=== PATIENT | female | born 1965 | race Caucasian/White ===

== ENCOUNTER 2021-04-17 14:44 | Outpatient (CLI) | payer OTHER, MEDICAID, SELFPAY ==
--- NOTE | ~2021-04-17 | MR_ITS ---
EXAMINATION: MR IAC wo/w con EXAM DATE: 04/17/2021 16:03 INDICATION: Asymmetrical sensorineural hearing loss. Sounds like loud bugs in right inferior TECHNIQUE: Multi-sequential, multiplanar MR images of the brain, brainstem, internal auditory canals were obtained without contrast. Whole brain sagittal T1, axial diffusion, gradient echo (T2*), T1, T 2, FLAIR sequences obtained. High resolution coronal 3-D FIESTA, coronal T1 FSE, axial T1 FSPGR of t he internal auditory canals. Patient was then injected with 17 cc Multihance contrast intravenously. Postcontrast axial and coronal T1 weighted whole brain, axial and coronal high resolution T1 IAC seq uences obtained. Comparison is made to prior examination from 2012. FINDINGS: No evidence of mastoid or middle ear opacification. The 7th/8th cranial nerve complexes a re symmetric, normal in course and caliber. No cerebellopontine angle masses. Posterior fossa unrem arkable. There are no areas of restricted diffusion to suggest acute infarction. There is no acute hemorrhage seen on the T2*, a hemosiderin sensitive sequence. No intraparenchymal brain mass. The ventricles a re normal in size. There are no extra-axial collections. Flow voids are seen in the cerebral arteri es on the T2-weighted sequences consistent with their expected patency. The orbits are unremarkable. Soft tissue is unremarkable. There are no areas of abnormal enhancement on the postcontrast image s. IMPRESSION: 1. Unremarkable brain/IAC MRI examination. Reviewed, dictated and finalized at location A.
[2021-04-17 15:21] LABS: Estimated Glomerular Filt Rate > 60
== END 2021-04-17 14:45 | disposition home or self-care (01) ==
PROVIDERS: PCP Internal Medicine; Visit Provider Otolaryngology
DX: H90.5 Unspecified sensorineural hearing loss (principal)
CPT/HCPCS: 70553; A9577

== ENCOUNTER 2021-11-22 12:02 | Outpatient (CLI) | payer BC, SELFPAY ==
--- NOTE | 2021-11-22 15:24 | WPDPFTINT ---
PFT Procedure Performed PFT Procedure Performed Spirometry with Pre/Post Bronchodilator Plethysmography (Lung Vol) Diffusing Cap (DLCO) Flow Vol Loop PFT Interpretation This is a pulmonary function test with pre and post-bronchodilator spirometry, plethysmography and diffusing capacity. The test was performed and results interpreted in accordance with the 2019 and 2005 ATS/ERS Task Force guidelines respectively using the Global Lung Function Initiative-2012 reference equations. Patient demonstrated good effort and cooperation. Reproducibility criteria were met. The quality of the pre bronchodilator spirometry maneuver was Grade B and post bronchodilator spirometry maneuver was Grade B. Findings: Spirometry: the contour the expiratory flow tracing is variable. There were 4 pre bronchodilators maneuvers: the 1st was normal, the 2nd was flattened, the 3rd was flattened with a knee pattern, and the 4th was flattened with an early notch. there were 3 post bronchodilator maneuvers: the 1st had an early expiratory notch, the 2nd was flattened with a knee pattern and the 3rd was normal. the contour the inspiratory flow tracing was normal in all 7 maneuvers. The pre bronchodilator FVC was 3.18 L, 96% predicted. The pre bronchodilator FEV1 is 2.27 L, 86% predicted. The pre bronchodilator FEV1: FVC ratio 71%. The post bronchodilator FVC is 3.09 L, representing a 3% decrease. The post bronchodilator FEV1 is 2.42 L, representing a 7% increase. The post bronchodilator FEV1: FVC ratio 78%. Plethysmography: The total lung capacity was 4.83 L, 95% predicted. The functional residual capacity is 2.12 L, 74% predicted. The residual volume is 1.66 L, 86% predicted. Diffusing capacity: The diffusing capacity unadjusted for hemoglobin and carboxyhemoglobin is 20.5, 93% predicted. The diffusing capacity adjusted for alveolar volume is 4.76 L, 106% predicted. Impression: Collectively the contour of the expiratory flow tracing is variable and ranges from normal, to flattened, to flattened with a knee pattern, to an early notched pattern. A flattened expiratory flow tracing is consistent with a variable intrathoracic obstruction and can be seen with tracheomalacia of the intrathoracic airway, intrathoracic bronchogenic cyst, malignant tracheal lesions and vocal fold abnormalities. The knee pattern can be a normal variant or pathologic and has been attributed to a choke point section of the bronchial tree. The normal variant is more common in younger female patients, decreases with age and is more pronounced in the post bronchodilator efforts. The pattern has also been described with kyphosis, kyphoscoliosis, central obstructing mass, and post lung transplantation. The notched pattern has been described with tracheobronchomalacia. Clinical correlation is recommended. Otherwise , the spirometry is normal without evidence of an obstructive abnormality. There is no significant improvement after inhaling a single dose of albuterol. The lung volumes are normal. The diffusing capacity is normal. There are no prior studies for comparison
== END 2021-11-22 12:03 | disposition home or self-care (01) ==
LOC: ANHPFT 12:03
PROVIDERS: PCP Internal Medicine; Visit Provider Clinical Nurse Specialist
DX: R06.2 Wheezing (principal)
CPT/HCPCS: 94060; 94726; 94729

== ENCOUNTER 2022-03-29 01:05 | Day surgery (SDC) | payer BC, SELFPAY ==
[2022-03-20 09:04] VITALS: BMI 33.7
[2022-03-29 12:01] VITALS: BP 132/84; PULSE 77; RESP 18; TEMP 36.3; O2SAT 97
[2022-03-29] MEDS: LACTATED RINGERS 1,000 ML 150 ML IV CONT (12:13)
--- NOTE | 2022-03-29 12:20 | PM.HPGS ---
History of Present Illness History of Present Illness Consent: Risks, benefits, and alternatives have been discussed and questions answered. Patient agrees to proceed with procedure. Chief complaint: neoplasm screening, dysphagia Narrative: Ruth Campos is a 56 year old female referred for colon cancer screening and for investigation of dysphagia. For the past year every few days she will feel as though food is caught in her upper chest. She feels as though she is going to choke. This happens frequently with corn and popcorn but other foods do it as well. She attempts to regurgitate what is caught but it will not come out. finally after drinking some water she will gradually get relief. Review of Systems Review of Systems: All systems reviewed & are unremarkable except as noted in HPI and below PMFSH Past Medical History Medical History Anxiety Arthritis Back pain with history of spinal surgery Depression with anxiety Hyperlipidemia Insomnia Surgical History Surgical History Hx of lumbosacral spine surgery Family History Family History Father Cerebrovascular accident Family history of Parkinson's disease Malignant neoplasm of prostate Family history of coronary artery disease Grandparent Family history of lung cancer Family history of coronary artery disease Sibling Family history of malignant neoplasm of uterus Family history of malignant neoplasm of brain Patient's brother is Social History Social History Social History: Caffeine-1 cup daily Smoking status: Current every day smoker Tobacco type: e-cigarettes/vaping Additional smoking assessment comments: vape has nicotine Alcohol intake: never Substance use type: does not use Living arrangements: with family Spiritual care concerns: No Meds Home Medications and Allergies Home Medications Medication Instructions Recorded Confirmed Type albuterol sulfate 90 mcg/actuation 1 inh inhalation Q4-6H PRN 10/09/21 03/29/22 Rx breath activated powder inhaler shortness of breath or wheezing #1 ea pregabalin 300 mg capsule (Lyrica) 300 mg PO BID #60 caps 02/04/22 03/29/22 Rx celecoxib 200 mg capsule (Celebrex) 200 mg PO DAILY #90 caps 02/06/22 03/29/22 Rx paroxetine HCl 10 mg tablet (Paxil) 10 mg PO DAILY #90 tabs 02/06/22 03/29/22 Rx zolpidem 10 mg tablet 10 mg PO QHS PRN insomnia #30 tabs 03/12/22 03/29/22 Rx cinnamon bark 500 mg capsule 500 mg PO DAILY 03/15/22 03/29/22 History mecobalamin (vitamin B12) 1,000 1,000 mcg PO DAILY PRN other 03/15/22 03/29/22 History mcg chewable tablet multivitamin (Multiple Vitamins 1 tablet PO DAILY 03/15/22 03/29/22 History tablet) b.keq-ian-njtla-wcs-yuza-wxkgn 1 ea PO DAILY 03/20/22 03/29/22 History 20-250-50 mg(d)20-200-100 mg(n) tablets (Black Cohosh Menopause Complex) fluticasone propionate 50 2 spray intranasal DAILY PRN 03/20/22 03/29/22 History mcg/actuation nasal Allergy Symptoms spray,suspension (Flonase Allergy Relief) Allergies Allergy/AdvReac Type Severity Reaction Status Date / Time No Known Allergies Allergy Verified 03/29/22 12:00 Vital Signs Vital Signs - 24 hr 03/29/22 12:01 Temperature 36.3 C L Pulse Rate 77 Respiratory Rate 18 Blood Pressure 132/84 Pulse Oximetry 97 Oxygen Delivery Room Air Exam Const: General: alert Orientation/consciousness: patient oriented x3 Resp: Auscultation: clear to auscultation bilaterally Cardio: Rhythm: regular rhythm GI: GI Palp: Yes Soft to palpation and No Tenderness to palpation present (GI) Neuro: General: patient oriented x3 Assessment and Plan Assessment and plan (1) Dysphagia: Qualifiers: Dysphagia type: unspecified
--- NOTE | 2022-03-29 12:34 | WPDANESEPPF ---
Anes - Initial Pre Proc Eval Procedure: Operation Date: 03/29/22 13:00 Proposed Procedures p Esophagogastroduodenoscopy & Screening Colonoscopy - Salazar Choi MD Date/Time: 03/29/22 12:34 Surgeon: Salazar Choi MD Pre Op Diagnosis: neoplasm screening, dysphagia Patient Data Age: 56 Gender: F Height: 1.63 m Weight: 86.6 kg Last Vital Signs Temp 97.4 F L 03/29/22 12:01 Pulse 77 03/29/22 12:01 Resp 18 03/29/22 12:01 BP 132/84 03/29/22 12:01 Pulse Ox 97 03/29/22 12:01 O2 Del Method Room Air 03/29/22 12:01 Allergies Allergy/AdvReac Type Severity Reaction Status Date / Time No Known Allergies Allergy Verified 03/29/22 12:00 Home Medications Medication Instructions Recorded Confirmed Type albuterol sulfate 90 mcg/actuation 1 inh inhalation Q4-6H PRN 10/09/21 03/29/22 Rx breath activated powder inhaler shortness of breath or wheezing #1 ea pregabalin 300 mg capsule (Lyrica) 300 mg PO BID #60 caps 02/04/22 03/29/22 Rx celecoxib 200 mg capsule (Celebrex) 200 mg PO DAILY #90 caps 02/06/22 03/29/22 Rx paroxetine HCl 10 mg tablet (Paxil) 10 mg PO DAILY #90 tabs 02/06/22 03/29/22 Rx zolpidem 10 mg tablet 10 mg PO QHS PRN insomnia #30 tabs 03/12/22 03/29/22 Rx cinnamon bark 500 mg capsule 500 mg PO DAILY 03/15/22 03/29/22 History mecobalamin (vitamin B12) 1,000 1,000 mcg PO DAILY PRN other 03/15/22 03/29/22 History mcg chewable tablet multivitamin (Multiple Vitamins 1 tablet PO DAILY 03/15/22 03/29/22 History tablet) b.vis-qla-ljfmo-wcu-funs-batln 1 ea PO DAILY 03/20/22 03/29/22 History 20-250-50 mg(d)20-200-100 mg(n) tablets (Black Cohosh Menopause Complex) fluticasone propionate 50 2 spray intranasal DAILY PRN 03/20/22 03/29/22 History mcg/actuation nasal Allergy Symptoms spray,suspension (Flonase Allergy Relief) Patient hx anesthesia problems: none Family hx anesthesia problems: none Results Review: All pre-operative results and documents have been reviewed as part of the pre-operative evaluation. [facility] Past Medical History Medical History (Updated 03/15/22 @ 09:58 by Jacqui Colin NP) Anxiety Arthritis Back pain with history of spinal surgery Depression with anxiety Hyperlipidemia Insomnia Surgical History Surgical History Hx of lumbosacral spine surgery Family History Family History Father Cerebrovascular accident Family history of Parkinson's disease Malignant neoplasm of prostate Family history of coronary artery disease Grandparent Family history of lung cancer Family history of coronary artery disease Sibling Family history of malignant neoplasm of uterus Family history of malignant neoplasm of brain Patient's brother is Social History Social History (Updated 03/15/22 @ 08:55 by Yuli Calixto CMA) Social History: Caffeine-1 cup daily Smoking status: Current every day smoker Tobacco type: e-cigarettes/vaping Additional smoking assessment comments: vape has nicotine Alcohol intake: never Substance use type: does not use Living arrangements: with family Spiritual care concerns: No Anes - Eval Final PreProcedure Day of Procedure 03/29/22 12:34 Patient weight: cachectic Heart: regular rate and rhythm Lungs: clear to auscultation Airway: Mallampati scale class II Neurological: alert and oriented Last oral intake: >/= 8 hours ASA classification: III Emergent: no Anesthetic plan: proceed Anesthesia type and monitoring: general GIVS and standard monitoring Results Review: All pre-operative results and documents have been reviewed as part of the pre-operative evaluation. Informed Consent: The patient's anesthetic plan and its attendant risks and benefits were discussed with the patient/family/POA. Questions were solicited and answers provided to the sati
--- NOTE | 2022-03-29 13:18 | SUR.OPER ---
EGD START 1254, END 1257 COLONOSCOPY START 1305, END 1315
[2022-03-29 13:19] VITALS: BP 95/73; PULSE 80; RESP 31; O2SAT 99
[2022-03-29 13:29] VITALS: BP 125/82; PULSE 72; RESP 20; O2SAT 97
[2022-03-29 13:39] VITALS: BP 124/81; PULSE 67; RESP 21; O2SAT 100
== END 2022-03-29 13:49 | disposition home or self-care (01) ==
PROVIDERS: PCP Internal Medicine; Visit Provider Internal Medicine Gastroenterology
PROC: 0DJ08ZZ Inspection of Upper Intestinal Tract, Via Natural or Artificial Opening Endoscopic (ICD-10-PCS; CPT 43235; principal; 2022-03-29 13:00)
DX: Z12.11 Encounter for screening for malignant neoplasm of colon (principal); K57.30 Diverticulosis of large intestine without perforation or abscess without bleeding; R13.10 Dysphagia, unspecified; K21.9 Gastro-esophageal reflux disease without esophagitis; Z79.51 Long term (current) use of inhaled steroids; E78.5 Hyperlipidemia, unspecified; F41.8 Other specified anxiety disorders; F17.290 Nicotine dependence, other tobacco product, uncomplicated
CPT/HCPCS: 45378; 43239; 87081; 88305; J2704; J7120

== ENCOUNTER 2023-02-14 20:52 | Emergency (ER) | payer OTHER, SELFPAY ==
--- NOTE | ~2023-02-14 | XR_ITS ---
EXAMINATION: XR chest 2V Exam Date/Time: 02/14/2023 21:25 CDT HISTORY: productive cough x 4 days Comparison: 08/25/2014. RESULT: Lines, tubes, and devices: None. Lungs and pleura: Right middle lobe scar/atelectasis, otherwise clear. Cardiomediastinal silhouette: Stable. Other: No acute osseous or upper abdominal finding. IMPRESSION: No acute cardiopulmonary process. Reviewed, dictated and finalized at location K.
--- NOTE | ~2023-02-14 | CT_ITS ---
EXAMINATION: CT abdomen pelvis wo con DATE: 02/14/2023 21:30 INDICATION: left flank ttp TECHNIQUE: Computed tomography (CT) of the abdomen and pelvis was performed without intravenous contr ast. Automated exposure control and iterative reconstruction technique were employed. The dose-length product was 1167.50 mGy-cm. COMPARISON: 03/21/2015; CT L-spine 10/02/2018. FINDINGS: Lower thorax: Minimal bibasilar scar/atelectasis. Coronary artery calcification. Liver: Enlarged. Diffuse fatty infiltration. Biliary/Gallbladder: Gallbladder is partially collapsed. Cholelithiasis. No bile duct dilation. Pancreas: No mass or duct dilation. Spleen: Normal. Adrenals:No mass. Kidneys: No mass, stone, or hydronephrosis. GI tract: No small or large bowel dilation. Normal appendix. Mesentery/Peritoneum: No ascites, mass, or free air. Retroperitoneum: No mass. Pelvis: Absent uterus, remaining pelvic organs are within normal limits. Soft Tissues: Soft tissues and body wall unremarkable. Bones: No acute osseous finding. Uncomplicated L4-5 posterior fusion. IMPRESSION: No acute abdominopelvic process detected. Hepatomegaly with steatosis. Cholelithiasis, without CT raymundo dence of cholecystitis. Reviewed, dictated and finalized at location K. IMPRESSION: No acute abdominopelvic process detected. Hepatomegaly with steatosis. Cholelit hiasis, without CT evidence of cholecystitis.
[2023-02-14 20:53] VITALS: BP 158/100; PULSE 98; RESP 16; TEMP 36.4; O2SAT 98
--- NOTE | 2023-02-14 21:13 | ED.GENADULT ---
HPI - General Adult General Chief complaint: Back Pain/Injury Stated complaint: lower back pain, kidney pain Time Seen by Provider: 02/14/23 21:03 Source: patient Mode of arrival: ambulatory Limitations: no limitations History of Present Illness HPI narrative: This is a 57-year-old female with PMH of sciatica, depression, anxiety who presents to the ED with chief complaint of left flank and left sided back pain ongoing for the past 2 days. Patient states that she has known sciatica on the right side at times with this, but started to have more pains in the left which is new to her. She reports pain is primarily in the left lower back and left flank and does not radiate into the abdomen or down the left lower extremity. Denies any injuries or trauma. She has additional complaints of recent onset of potential viral illness. She states she has had some sore throat, productive cough for the past 4 days. Denies fevers, chills, nausea, vomiting, abdominal pain, diarrhea, chest pain, shortness of breath, urinary symptoms. Denies bowel or bladder dysfunction, saddle anesthesia. Related Data Home Medications Medication Instructions Recorded Confirmed cinnamon bark 500 mg capsule 500 mg PO DAILY 03/15/22 03/29/22 mecobalamin (vitamin B12) 1,000 1,000 mcg PO DAILY PRN other 03/15/22 03/29/22 mcg chewable tablet multivitamin (Multiple Vitamins 1 tablet PO DAILY 03/15/22 03/29/22 tablet) b.wcz-kep-baspe-ywa-oaqo-wwlzq 1 ea PO DAILY 03/20/22 03/29/22 20-250-50 mg(d)20-200-100 mg(n) tablets (Black Cohosh Menopause Complex) fluticasone propionate 50 2 spray intranasal DAILY PRN 03/20/22 03/29/22 mcg/actuation nasal Allergy Symptoms spray,suspension (Flonase Allergy Relief) Allergies Allergy/AdvReac Type Severity Reaction Status Date / Time No Known Allergies Allergy Verified 02/14/23 20:52 [facility] Past Medical History Medical History Anxiety Arthritis Back pain with history of spinal surgery Depression with anxiety Hyperlipidemia Insomnia Surgical History Surgical History Hx of lumbosacral spine surgery Family History Family History Father Cerebrovascular accident Family history of Parkinson's disease Malignant neoplasm of prostate Family history of coronary artery disease Grandparent Family history of lung cancer Family history of coronary artery disease Sibling Family history of malignant neoplasm of uterus Family history of malignant neoplasm of brain Patient's brother is Social History Social History Social History: Caffeine-1 cup daily Smoking status: Current every day smoker Tobacco type: e-cigarettes/vaping Additional smoking assessment comments: vape has nicotine Alcohol intake: never Substance use type: does not use Living arrangements: with family Spiritual care concerns: No Exam Narrative: GENERAL: Sitting on the side of the bed, tearful. HEAD: Normocephalic, atraumatic. EYES: PERRLA and EOMI. ENT: Nares clear, no rhinorrhea or epistaxis. Mucous membranes moist. Oropharynx without tonsillar hypertrophy exudate or other lesions. NECK: Supple. No adenopathy or masses. CHEST: No respiratory distress. Clear to auscultation. No wheezes rales or rhonchi HEART: Regular rate and rhythm. No murmur heard. Normal peripheral pulses. ABDOMEN: Mild left flank tenderness present. Soft, otherwise nontender, nondistended, normal active bowel sounds. MSK: Normal range of motion. No edema. No midline CT LS spine tenderness. She is ambulatory. SKIN: Warm, dry, no rash. NEURO: Alert and oriented x3. No focal deficits. No saddle anesthesia. PSYCH: Normal mood and affect. Course Vital Signs Vital signs: Vital Signs Temperatu
[2023-02-14] MEDS: HYDROmorphone HCL INJ (*CRX) 1 MG/ML SYR 0.5 MG IV PUSH (21:52)
[2023-02-14] MEDS: ONDANSETRON INJ 4 MG/2 ML VIAL IV PUSH (21:53)
[2023-02-14 22:04] LABS: Basophils Absolute Auto 0.1 K/mm3 (0.0-0.1); Basophils Percent Auto 0.6 % (0.2-1.2); Eosinophils Absolute Auto 0.1 K/mm3 (0-0.3); Eosinophils Percent Auto 0.6 % (0-4.4); Hematocrit 38.5 % (37.0-47.0); Hemoglobin 12.7 g/dL (12.0-15.0); Immature Granulocyte Absolute 0.01 K/mm3 (0.00-0.031); Immature Granulocyte Percent A 0.1 % (0-0.5); Lymphocytes Absolute Auto 1.53 K/mm3 (0.9-3.2); Mean Corpuscular Hemoglobin 28.3 pg (26-34); Mean Corpuscular Volume 85.7 fl (80-100); Mean Platelet Volume 9.6 fl (7.4-10.4); Monocytes Absolute Auto 0.7 K/mm3 (0.1-0.6); Monocytes Percent Auto 8.5 % (2.6-8.5); Neutrophils Absolute Auto 5.7 K/mm3 (1.3-6.7); Neutrophils Percent Auto 71.2 % (45.5-73.1); Platelet Count Result 325 k/mm3 (150-375); Red Blood Count 4.49 M/mm3 (4.2-5.4); Red Cell Distribution Width 12.9 % (11.5-14.5)
[2023-02-14 22:10] LABS: Appearance Urine Clear (Clear); Bacteria Urine None Seen /hpf; Bilirubin Urine Negative (Negative); Blood Urine Negative (Negative); Color Urine Yellow (Yellow); Glucose Urine UA Negative (Negative); Ketones Urine Negative (Negative); Leukocyte Esterase Ur 2+ LEU/UL (Negative); Nitrate Urine Negative (Negative); Non Pathogenic Casts 0-2; Protein Urine Negative (Negative); RBC Urine 0-2 /hpf (0-2); Specific Grav Ur 1.023 (1.001-1.035); Squamous Epithelial Cell Urine Few /hpf (Few); pH Urine 6.5 (5.0-9.0)
[2023-02-14 22:13] LABS: Add Urine Microscopic? YES
[2023-02-14 22:14] LABS: Alanine Aminotransferase 90 U/L (6-35); Albumin Level 4.7 g/dL (3.5-5.1); Alkaline Phosphatase 121 U/L (38-126); Anion Gap 7 mmol/L (8-16); Aspartate Amino Transferase 52 U/L (14-36); Bilirubin,Total 0.4 mg/dL (0.2-1.3); Blood Urea Nitrogen 25 mg/dL (7-17); Calcium 9.4 mg/dL (8.4-10.2); Carbon Dioxide 26 mmol/L (22-30); Chloride 107 mmol/L (98-107); Estimated CRCL calculation 95 ml/min; Estimated Glomerular Filt Rate > 60; Glucose 107 mg/dL (65-110); Potassium 4.2 mmol/L (3.4-5.0); Sodium 140 mmol/L (137-145)
[2023-02-14 23:09] VITALS: BP 144/92; PULSE 89; RESP 15; O2SAT 100
== END 2023-02-14 23:10 | disposition home or self-care (01) ==
PROVIDERS: Emergency Medicine; Emergency Provider Physician Assistant; PCP Internal Medicine
DX: M54.50 Low back pain, unspecified (principal); E78.5 Hyperlipidemia, unspecified; M19.90 Unspecified osteoarthritis, unspecified site; F41.8 Other specified anxiety disorders; F17.290 Nicotine dependence, other tobacco product, uncomplicated
CPT/HCPCS: 36415; 71046; 74176; 80053; 81001; 85025; 87086; 96374; 96375; 99284; J1170; J2405

== ENCOUNTER 2025-05-26 07:51 | Emergency (ER) | payer OTHER, SELFPAY ==
--- OUTSIDE RECORDS SUMMARY | 2025-03-01 10:00 | XMS_ITS ---
Author Organization Replaced by [facility] Address [address] [place] [address] Care Team Providers Care City Marshal Name Role Phone Marce Boyce Primary Care Provider Allergies No Known Allergies REASON FOR VISIT 1 month FU Medications Medication SIG (Take, Route, Frequency, Duration) Notes Start Date End Date Status Ketorolac Tromethamine 10 MG 1 tablet wi th food or milk as needed Orally every 6 hrs Active hydrOXYzine HCl 25 MG 1 tablet Orally 3 times a day; Duration: 30 days As needed for anxiety Active Pregabalin 300 MG 1 capsule Orally twi ce a day Active Meloxicam 15 MG 1 tablet Orally Once a day Active lamoTRIgine 25 MG 2 tablets Orally daily; Duration: 14 days stop taking and call your doctor if a rash develops Active Ibuprofen 800 MG 1 tablet with food o r milk as needed Orally every 8 hrs Active Lurasidone HCl 80 MG 1 tablet in the faye meng with food Orally Once a day; Duration: 30 days Active Zolpidem Tartrate 5 MG 1 tablet at bedti nc as needed Orally Once a day; Duration: 30 days 01/11/2025 Active FLUoxetine HCl 20 mg TAKE 1 CAPSULE BY M OUTH DAILY; Duration: 30 Active Nicotine 7 MG/24HR 1 patch to skin Transdermal Once a day; Duration: 30 days remove every 24 hours [address] Place on clean, dry skin on the arm, shoulder or back. Active Cyclobenzaprine HCl 5 MG 1 tablet at bed time as needed Orally Once a day Active Multivitamin - 1 tablet Orally Once a day Active Social History Sex Assigned At : Social History Observation Description Sex Assigned At Female Encounters Encounter Location Date Provider Diagnosis [facility] [address] [place] [address] 03/01/2025 Marce Boyce Plan Of Treatment No Information Progress Notes * Vicki CAMPOSOB:1965 (59 yo F)Acc No.[id number]:03/01/2025 UNLOCKED PROGRESS NOTE Patient: uRth PRUITT Provider: Juan David Boyce, MSN, RN [facility], PMHNP- :1965 A ge:59 Y S ex:Female Date:03/01/2025 Phone: Address:[address], [facility] Subjective: * Chief Complaints: * 1 . 1 month FU. * Medical History: S chizophrenia, Depression, Anxiety disorder, Obsessive-compulsive personality disorder, Osteoarthritis, Hypoglycemia. * Surgical History: h ysterectomy 2009, lower lumbar 2019. * Hospitalization/Major Diagno stic Procedure: h ysterectomy 2009, lower lumbar 2019. * Family History: F ather: . M other: . 1 son(s) , 1 daughter(s) . . * Social History: P rimary Social History: L iving Arrangement L iving Arrangement: I ndependent Living, I s this a supportive environment? Y es. A lcohol Use A lcohol Use Frequency: N ever. I llicit Substance Usage I llicit Substance Usage: N o. E mployment Status E mployment Status:?Unemployed. S mekhi Question Alcohol Screening H ow many times in the past year have you had (4 for women, or 5 for men) or more drinks in a day? 0 . * Medications: T aking Zolpidem Tartrate 5 MG Tablet 1 tablet at bedtime as needed Orally Once a day , Taking Nicotine 7 MG/24HR Patch 24 Hour 1 patch to skin Transdermal Once a day remove every 24 hours and [address] sites. Place on clean, dry skin on the arm, shoulder or back., Taking Lurasidone HCl 80 MG Tablet 1 tablet in the evening with food Orally Once a day , Taking lamoTRIgine 25 MG Tablet 2 tablets Orally daily stop taking and call your doctor if a rash develops, Taking hydrOXYzine HCl 25 MG Tablet 1 tablet Orally 3 times a day As needed for anxiety, Taking Pregabalin 300 MG Capsule 1 capsule Orally twice a day , Taking Ketorolac Tromethamine 10 MG Tablet 1 tablet with food or milk as needed Orally every 6 hrs , Taking Meloxicam 15 MG Tablet 1 tablet Orally Once a day , Taking Multivitamin - Tablet 1 tablet Orally Once a day , Taking Cyclobenzaprine HCl 5 MG Tablet 1 tablet at bedtime as needed Orally Once a day , Taking Ibuprofen 800 MG Tablet 1 tablet with food or milk as needed Orally every 8 hrs , Taking FLUoxetine HCl 20 mg Capsule TAKE 1 CAPSULE BY MOUTH DAILY * Allergies: N .K.D.A. Objective: * Vitals: Assessment: Plan: * Treatment: * * Electronic signature of Allyson Boyce on 05/26/2025 at 07:55 AM CDT Sign off status: Pending * Provider: Juan David Boyce, MSN, RN [facility], PMHNP-BC Date: 0 03/01/2025 Generated for Printing/Faxing/eTransmitting on: 1 07:55 AM CDT
--- NOTE | ~2025-05-26 | XR_ITS ---
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 Findings: No acute fracture or malalignment. Moderate degenerative changes. The humeral head appears slightly subluxed inferiorly which may relate to an underlying joint effusion. Soft tissues unremarkable. Impression: Degenerative changes detailed above. Joint effusion suspected. MRI recommended to further assess. Reviewed, dictated and finalized at location P. Impression: Degenerative changes detailed above. Joint effusion suspected. MRI recommended to further assess.
[2025-05-26 07:53] VITALS: BP 117/71; PULSE 71; RESP 16; TEMP 36.4; O2SAT 98
--- OUTSIDE RECORDS SUMMARY | 2025-05-26 07:55 | XMS_ITS | Encounter Summary ---
Author Organization [facility] Address [address] [place] [address] Phone Care Team Providers Care Commutator Assembler Name Role Phone Alfredo Zacarias MD Primary Care Provider [phone] Reason for Visit * Reason Comments Medication Refill Encounter Details Date Type Department Care Team (Late st Contact Info) Description 07/17/2021 Refill [facility] - Family Medicine [facility] ([facility] [address] [place] [address] Alfredo Zacarias MD [address] [address] Medication Refill Social History Tobacco Use Types Packs/Day Years Used Date Smoking Tobacco: Former Cigarettes Smokeless Tobacco: Never Alcohol Use Standard Drinks/Week Comments Yes 0 (1 standard drink = 0.6 oz pur e alcohol) rarely PHQ-2 Answer Date Recorded Total Score - Questions 1-9 0 10/10 Sexually Active Control Partners Comments Yes Comments No Sex and Gender Information Value Date Recorded Sex Assigned at Not on file Legal Sex Female 3:57 AM [employer]TER[employer]ING CONSULTANT Gender Identity Not on file Sexual Orientation Not on file documented as of this encounter Miscellaneous Notes * Telephone Encounter - Radha Esquivel RMA - 07/18/2021 11:24 AM ENTER[employer] PL[employer]ING CONSULTANT Pt no longer comes here. [employer] CONSULTANT * Telephone Encounter - Ursula Martinez RN - 07/18/2021 7:46 AM CST Patient needs an appointment with PCP [employer] CONSULTANT * Telephone Encounter - Ursula Martinez RN - 07/17/2021 3:49 PM CST Medication failed the protocol, provider to review and approve the medication order if appropriate. Requested Prescriptions Pending Prescriptions Disp Refills Pregabalin 300 MG Capsule [Pharmacy Med Name: PREGABALIN 300MG CAPSULES] 60 Capsule Sig: TAKE 1 CAPSULE BY MOUTH TWICE DAILY Not Delegated - Anticonvulsants Protocol Failed - 07/17/2021 1:07 PM Failed - This refill cannot be delegated Passed - Visit with relevant provider in past 12 months or upcoming 90 days Recent Visits Date Type Provider Dept 12/04/20 Office Visit Azul Mooney APRN, [facility] 11/03/20 Office Visit Azul Mooney APRN, [facility] Showing recent visits within past 365 days and meeting all other requirements Future Appointments No visits were found meeting these conditions. Showing future appointments within next 90 days and meeting all other requirements [employer] CONSULTANT documented in this encounter Plan of Treatment Not on file documented as of this encounter Visit Diagnoses Diagnosis Lumbar radiculopathy Thoracic or lumbosacral neuritis or radiculitis, unspecified documented in this encounter Additional Health Concerns Assessment Noted Time PHQ-9 Depression Total Score: 0 11/04/19 21 4:00 PM CDT documented as of this encounter Care Teams Commutator Assembler Relationship Specialty Start Date End Date Alfredo Zacarias MD [address] [address] PCP - General Family Medicine 07/24/18 12/08/23 documented as of this encounter
--- OUTSIDE RECORDS SUMMARY | 2025-05-26 07:55 | XMS_ITS | Patient Health Record ---
Author Organization [facility] [employer] [facility] Address [address] [facility] [address] [place] [address] Care Team Providers Care Public Speaking Professor Name Role Phone Umang Hagen Unavailable [phone] Reason For Referral No Information Social History Social History Additional Details Category Social Info Options Details Migrated Social History Migrated Social History Tobacco Years: Never smoker 03/28/2021 Plan Of Treatment No Information Insurance Providers Payer Name Payer Address Payer Phone Subscriber Number Group Number Insured Name Patient Relationship to Insured Coverage Start Date Coverage End Date [address] [place] [phone] [id number] PORTIA LEMUS Spouse - patient is the spouse of the insured
--- OUTSIDE RECORDS SUMMARY | 2025-05-26 07:55 | XMS_ITS | Patient Health Record ---
Author Organization Formerly [facility] Address [address] [place] [address] Care Team Providers Care Jacquard Plate Maker Name Role Phone Marce Boyce Primary Care Provider [phone] Allergies No Known Allergies Results Component Value Reference Range Notes Hemoglobin A1c* Reviewed date:10/17/2024 12:47:50 PM Interpretation: Performing Lab:[employer] [facility], Phone - [phone], Director - Karin Notes/Report: Hemoglobin A1c 5.8 4.8-5.6 % . Prediabetes: 5.7 - 6.4 Diabetes: >6.4 Glycemic control for adults with diabetes: <7.0 Prolactin Reviewed date:10/17/2024 12:47:56 PM Interpretation: Performing Lab[facility], Phone - [phone], Director - Karin Notes/Report: Prolactin 8.9 3.6-25.2 ng/mL CBC With Differential/Platel et* Reviewed date:10/17/2024 12:47:44 PM Interpretation: Performing Lab[facility], Phone - [phone], Director - [employer] Notes/Report: WBC 5.8 3.4-10.8 x10E3/uL RBC 5.28 3.77-5.28 x10E6/uL Hemoglobin 14.6 11.1-15.9 g/dL Hematocrit 44.7 34.0-46.6 % MCV 85 79-97 fL MCH 27.7 26.6-33.0 pg MCHC 32.7 31.5-35.7 g/dL RDW 13.0 11.7-15.4 % Platelets 496 150-450 x10E3/uL Neutrophils 63 Not Estab. % Lymphs 28 Not Estab. % Monocytes 7 Not Estab. % Eos 1 Not Estab. % Basos 1 Not Estab. % Neutrophils (Absolute) 3.6 1.4-7.0 x10E3/uL Lymphs (Absolute) 1.6 0.7-3.1 x10E3/uL Monocytes(Absolute) 0.4 0.1-0.9 x10E3/uL Eos (Absolute) 0.1 0.0-0.4 x10E3/uL Baso (Absolute) 0.1 0.0-0.2 x10E3/uL Immature Granulocytes 0 Not Estab. % Immature Grans (Abs) 0.0 0.0-0.1 x10E3/uL TSH+Free T4* Reviewed date:10/17/2024 12:48:14 PM Interpretation: Performing Lab:[employer] [facility] [address] [place] [address], Phone - [phone], [facility]/Report: TSH 1.920 0.450-4.500 uIU/mL T4,Free(Direct) 1.09 0.82-1.77 ng/dL Lipid Panel* Reviewed date:10/17/2024 12:48:08 PM Interpretation: Performing Lab:[employer] [place], [address] [place] [address], Phone - [phone], [facility] - [facility] Notes/Report: Cholesterol, Total 218 100-199 mg/dL Triglycerides 105 0-149 mg/dL HDL Cholesterol 72 >39 mg/dL VLDL Cholesterol Cl 18 5-40 mg/dL LDL Chol Calc (NIH) 128 0-99 mg/dL CMP 14 Comprehensive Metabol ic Panel* Reviewed date:10/17/2024 12:47:30 PM Interpretation: Performing Lab:[employer] [facility] [address] [place] [address], Phone - [phone], [facility] Notes/Report: Glucose 87 70-99 mg/dL BUN 20 6-24 mg/dL Creatinine 0.56 0.57-1.00 mg/dL eGFR 106 >59 mL/min/1.73 BUN/Creatinine Ratio 36 9-23 Sodium 141 134-144 mmol/L Potassium 5.1 3.5-5.2 mmol/L Chloride 103 96-106 mmol/L Carbon Dioxide, Total 22 20-29 mmol/L Calcium 10.1 8.7-10.2 mg/dL Protein, Total 7.2 6.0-8.5 g/dL Albumin 4.5 3.8-4.9 g/dL Globulin, Total 2.7 1.5-4.5 g/dL Bilirubin, Total 0.2 0.0-1.2 mg/dL Alkaline Phosphatase 95 44-121 IU/L AST (SGOT) 14 0-40 IU/L ALT (SGPT) 21 0-32 IU/L Reason For Referral No Information Medications Medication SIG (Take, Route, Frequency, Duration) Notes Start Date End Date Status FLUoxetine HCl 20 MG 1 capsule Orally Once a day; Duration: 30 days Active Zolpidem Tartrate 5 MG 1 tablet at bedtime as needed Orally Once a day; Duration: 9 days bridge refill, will refill at next appt 04/18/2025 Active Propranolol HCl 10 MG 1 tablet Orally twice a day; Duration: 9 days Active Pregabalin 300 MG 1 capsule Orally twice a day Active Multivitamin - 1 tablet Orally Once a day Active Lurasidone HCl 80 MG 1 tablet in the evening with food Orally Once a day; Duration: 30 days Active Ketorolac Tromethamine 10 MG 1 tablet with food or milk as needed Orally every 6 hrs Not-Taking Meloxicam 15 MG 1 tablet Orally Once a day Not-Taking Cyclobenzaprine HCl 5 MG 1 tablet at bedtime as needed Orally Once a day Not-Taking Propranolol HCl 10 MG 1 tablet Orally twice a day; Duration: 30 days As needed for anxiety Active Ibuprofen 800 MG 1 tablet with food or milk as needed Orally every 8 hrs Not-Taking Zolpidem Tartrate 5 MG 0.5 tablet at bedtime as needed Orally Once a day; Duration: 30 days 04/27/2025 Active lamoTRIgine 25 MG 2 tablets Orally daily; Duration: 8 days stop taking and call your doctor if a rash develops Not-Taking Social History Tobacco Use: Social History Observation Description Date Details (start date - stop date) Current Smoker NA - NA Sex Assigned At : Social History Observation Description Sex Assigned At Female Tobacco Control (Standard) Question Answer Notes Tobacco use: Current smoker How often do you smoke cigarettes? Some days, bu t not every day Additional Findings: Tobacco user e-cigarette Problems Problem Type SNOMED Code ICD Code Onset Dates Problem Status W/U Status Risk Notes Problem Schizoaffective disorder, bipolar type (48046636) Schizoaffective disorder, bipolar type (F25.0) Active confirmed Problem Insomnia (695102476) Insomnia (G47.00) Active confirmed Problem Schizophrenia (55619337) Schizophrenia (F20.9) Active confirmed Problem Generalized anxiety disorder (71301285) AILYN (generalized anxiety disorder) (F41.1) Active confirmed Problem Nicotine dependence (35877893) Nicotine dependence (F17.200) Active confirmed Vital Signs Weight 165 lbs 04/27/2025 Encounters Encounter Location Date Provider Diagnosis [address] [place] [address] 10/14/2024 Marce Carli [address] [address] 10/13/2024 Marce Carli Schizoaffective disorder, bipolar type F25.0 and Therapeutic drug monitoring Z51.[address] [address] 10/20/2024 Marce Carli Schizoaffective disorder, bipolar type F25.0 ; Insomnia G47.00 and Nicotine dependence F17.[address] [address] 10/27/2024 Marce Carli Schizoaffective disorder, bipolar type F25.0 ; Insomnia G47.00 and Nicotine dependence F17.[address] [address] 11/03/2024 Marce Carli Schizoaffective disorder, bipolar type F25.0 ; Insomnia G47.00 and Nicotine dependence F17.[address] [address] 11/15/2024 Marce Carli Schizoaffective disorder, bipolar type F25.0 ; Insomnia G47.00 and Nicotine dependence F17.[address] [place] [address] 11/22/2024 Marce Carli Schizoaffective disorder, bipolar type F25.0 ; Insomnia G47.00 and Nicotine dependence F17.200 [facility] [address], [place] [address] 12/08/2024 Marce Carli Schizoaffective disorder, bipolar type F25.0 ; Insomnia G47.00 and Nicotine dependence F17.200 [facility] [address] [place] [address] 12/22/2024 Marce Carli Schizoaffective disorder, bipolar type F25.0 ; Insomnia G47.00 ; Nicotine dependence F17.200 and AILYN (generalized anxiety disorder) F41.1 [facility] [address], [place] [address] 01/11/2025 Marce Carli Schizoaffective disorder, bipolar type F25.0 ; Insomnia G47.00 ; Nicotine dependence F17.200 and AILYN (generalized anxiety disorder) F41.1 [facility] [address] [place] [address] 03/09/2025 Marce Carli Schizoaffective disorder, bipolar type F25.0 ; Insomnia G47.00 ; Nicotine dependence F17.200 and AILYN (generalized anxiety disorder) F41.1 [facility] [address] [place] [address] 04/27/2025 Marce Carli Schizoaffective disorder, bipolar type F25.0 ; Insomnia G47.00 ; Nicotine dependence F17.200 and AILYN (generalized anxiety disorder) F41.1 [facility] [address] [place] [address] 10/18/2024 Marce Carli [facility] [address] [place] [address] 11/11/2024 Marce Carli [address] [place] [address] 02/22/2025 Marce Carli [address] [place] [address] 03/01/2025 Marce Carli Schizoaffective disorder, bipolar type F25.0 ; Insomnia G47.00 ; Nicotine dependence F17.200 and AILYN (generalized anxiety disorder) F41.[address] [facility] [place] [address] 04/14/2025 Marce Carli Schizoaffective disorder, bipolar type F25.0 Assessments Encounter Date Diagnosis (ICD Code) Assessment Notes Treatment Notes Treatment Clinical Notes Section Notes 10/27/2024 Schizoaffective disorder, bipolar type (ICD-10 - F25.0) 11/15/2024 Schizoaffective disorder, bipolar type (ICD-10 - F25.0) Start Lurasidone. Take as prescribed. Reviewed purpose (mood stability), benefits, and risks - low blood pressure, metabolic syndrome with high cholesterol or high blood sugars, change in cardiac conduction, nausea, vomiting, temporary or permanent movement disorders, and akathisia. Explained that no medication can be guaranteed to be 100% safe for baby or mother. Call for problems with medication, side effects or need for dosage change. 03/01/2025 Schizoaffective disorder, bipolar type (ICD-10 - F25.0) 03/09/2025 Schizoaffective disorder, bipolar type (ICD-10 - F25.0) 03/09/2025 Insomnia (ICD-10 - G47.00) 04/14/2025 Schizoaffective disorder, bipolar type (ICD-10 - F25.0) 04/27/2025 Schizoaffective disorder, bipolar type (ICD-10 - F25.0) 01/11/2025 Schizoaffective disorder, bipolar type (ICD-10 - F25.0) 11/03/2024 Schizoaffective disorder, bipolar type (ICD-10 - F25.0) Start Escitalopram. Reviewed side effects which may include increased risk of suicide, anxiety, sleep disturbance, nausea, dry mouth, increased bruising, sexual dysfunction, lily, wt gain, and serotonin syndrome. Call for problems with medication, side effects or need for dosage change. 10/13/2024 Schizoaffective disorder, bipolar type (ICD-10 - F25.0) 10/13/2024 Therapeutic drug monitoring (ICD-10 - Z51.81) 12/22/2024 Schizoaffective disorder, bipolar type (ICD-10 - F25.0) Begin Lamotrigine as prescribed. Reviewed purpose (mood stability, reduce depression, and help with irritability), benefits, and risks - including sedation, nausea, rash - benign or serious. A serious rash could cause shedding of all skin and even become fatal. Stop taking medication immediately if a rash occurs and seek emergency care. Notify our office as well. If you ever miss 4 or more consecutive days of taking this medication, please let the office know. The prescriber may need to restart this medication at 25 mg daily and titrate up as tolerated. Call for problems with medication, side effects or need for dosage change. 12/22/2024 Insomnia (ICD-10 - G47.00) 10/20/2024 Schizoaffective disorder, bipolar type (ICD-10 - F25.0) 10/20/2024 Insomnia (ICD-10 - G47.00) 12/08/2024 Schizoaffective disorder, bipolar type (ICD-10 - F25.0) Start Fluoxetine. Reviewed side effects which may include increased risk of suicide, anxiety, sleep disturbance, nausea, dry mouth, increased bruising, sexual dysfunction, lily, wt gain, and serotonin syndrome. Need to notify provider if planning or experiencing . Call for problems with medication, side effects or need for dosage change. 11/22/2024 Schizoaffective disorder, bipolar type (ICD-10 - F25.0) 11/22/2024 Insomnia (ICD-10 - G47.00) 12/22/2024 Nicotine dependence (ICD-10 - F17.200) 12/08/2024 Insomnia (ICD-10 - G47.00) 10/20/2024 Nicotine dependence (ICD-10 - F17.200) 11/03/2024 Insomnia (ICD-10 - G47.00) 01/11/2025 Insomnia (ICD-10 - G47.00) 03/09/2025 Nicotine dependence (ICD-10 - F17.200) 04/27/2025 Insomnia (ICD-10 - G47.00) 03/01/2025 Insomnia (ICD-10 - G47.00) 11/15/2024 Insomnia (ICD-10 - G47.00) 10/27/2024 Insomnia (ICD-10 - G47.00) 10/27/2024 Nicotine dependence (ICD-10 - F17.200) 11/15/2024 Nicotine dependence (ICD-10 - F17.200) 03/09/2025 AILYN (generalized anxiety disorder) (ICD-10 - F41.1) Begin propranolol. Take as prescribed. Reviewed purpose (decrease anxiety and panic attacks), benefits, and risks - including low pulse rate, low blood pressure, sexual dysfunction, wheezing/asthma attack, weight gain, increased blood sugar, and sedation. Call for problems with medication, side effects or need for dosage change. 03/01/2025 Nicotine dependence (ICD-10 - F17.200) 11/03/2024 Nicotine dependence (ICD-10 - F17.200) 04/27/2025 Nicotine dependence (ICD-10 - F17.200) 01/11/2025 Nicotine dependence (ICD-10 - F17.200) 12/22/2024 AILYN (generalized anxiety disorder) (ICD-10 - F41.1) Begin hydroxyzine. Take as prescribed. Reviewed purpose (reduce anxiety and/or promote sleep), benefits, and risks - including sedation and dry mouth. Call for problems with medication, side effects or need for dosage change. 12/08/2024 Nicotine dependence (ICD-10 - F17.200) 11/22/2024 Nicotine dependence (ICD-10 - F17.200) 01/11/2025 AILYN (generalized anxiety disorder) (ICD-10 - F41.1) 04/27/2025 AILYN (generalized anxiety disorder) (ICD-10 - F41.1) 03/01/2025 AILYN (generalized anxiety disorder) (ICD-10 - F41.1) 10/13/2024 Other May self-administer medications or be administered own oral medications per [facility] protocols. Provided informed consent with understanding of side effects, adverse effects, risks and benefits as well as alternative treatments as previously discussed and with the above recommended medications & other aspects of the treatment program. Agrees to return sooner if symptoms worsen or suicidal or homicidal ideations occur. Plan: -D/C Zolpidem Tartrate 10 mg QHS PRN(30 filled 08/19/24) -Start Risperidone 0.5 mg BID *labs ordered -Follow up: 1 week [] Hard Rx handed to patient [] Rx phoned into pharmacy [x] Rx faxed/e-prescribed into pharmacy [x] PDMP Reviewed [] [employer] Reviewed Encouraged by Marce Boyce [facility] to: [x] consider utilizing therapist/counselor /electrical worker/psychologist , referral given [] continue with therapist/counselor /electrical worker/psychologist Psychoeducation: -Treatment options discussed in detail with patient/guardian verbalizing understanding of treatment rationales. -Side effects and benefits of all medications prescribed discussed at length between psychiatric prescribing provider and patient/guardian along with the risks associated of [id number] interactions, including but not limited to prescription medications, OTC medications, vitamins, minerals and herbal supplements. -Patient/Guardian and provider dialogue showcased verbalized understanding from patient on rationales of medication risk vs benefits. 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 -Reduction of stress and anxiety to aid in focus and concentration discussed, again, with patient/guardian physically nodding, voicing understanding, and engaged in treatment plan with Marce Boyce [facility]. -Perceiving complete understanding of rationale by patient/guardian and willingness to adhere to formulated plan of care by prescriber with patient/guardian buy-in, willingness to participate actively in plan of care and willing to take charge of own care. -Although geared for female patients, all patients/guardians are informed by prescribing provider of risks of medications that could potentially be taken by female/women within their [place] influence and that women who use medicine during have a higher chance of having a baby with defects. -Patient/Guardian denies being and/or knowing of women who are at present and denies wanting to become in the foreseeable future, 0-6 months from now. -Patient/Guardian again informed of the risk of pharmaceutical medications consumed during and how there are potential negative effects on the developing fetus. -Patient/Guardian verbalizes understanding of rationale and physically nods head in agreement that if a should occur, to consult with provider, COATING MIXER SUPERVISOR and/or Nurse Active Directory Engineer to determine if prescribed medications should or should not be continued. -Instructions regarding both the medical/pharmacolog ical and non-pharmacologic aspects of the treatments employed were given, and the patient/guardian seemed to understand this. Risks and benefits of treatment, and of non-treatment, were also discussed. The patient/guardian understands the more frequent side effects associated with the medications. -The use of psychotherapy was addressed today and will continue on an as needed basis for the foreseeable future. The choice is, of course, ultimately left to the patient/guardian. -Patient/Guardian was encouraged to make a follow-up appointment for the next visit. -Additional treatment was discussed and has been addressed on an ongoing basis within the context of this patient's illness, resources, progress, and other appropriate factors. Being compliant with a regular exercise routine, consistent medication use, ongoing psychotherapy, eating and sleeping well, as well as the importance of handling stress, was discussed. 10/20/2024 Other May self-administer medications or be administered own oral medications per [facility] protocols. Provided informed consent with understanding of side effects, adverse effects, risks and benefits as well as alternative treatments as previously discussed and with the above recommended medications & other aspects of the treatment program. Agrees to return sooner if symptoms worsen or suicidal or homicidal ideations occur. Unable to complete full AIMS due to nature of appt, denies any irregular muscle movements or facial tics; no irregular movements observed during Zoom appt. Plan: -Increase Risperidone to 0.5 mg 2 tabs BID -Restart Zolpidem at 5 mg QHS PRN -Continue Nicotine 7 mg/24 hr patch (patient decreased dose) -Follow up: 1 week [] Hard Rx handed to patient [] Rx phoned into pharmacy [x] Rx faxed/e-prescribed into pharmacy [x] PDMP Reviewed [] [employer] Reviewed Encouraged by Marce Boyce PMHNP-BC to: [x] consider utilizing therapist/counselor /electrical worker/psychologist [] continue with therapist/counselor /electrical worker/psychologist Psychoeducation: -Treatment options discussed in detail with patient/guardian verbalizing understanding of treatment rationales. -Side effects and benefits of all medications prescribed discussed at length between psychiatric prescribing provider and patient/guardian along with the risks associated of [id number] interactions, including but not limited to prescription medications, OTC medications, vitamins, minerals and herbal supplements. -Patient/Guardian and provider dialogue showcased verbalized understanding from patient on rationales of medication risk vs benefits. 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 -Reduction of stress and anxiety to aid in focus and concentration discussed, again, with patient/guardian physically nodding, voicing understanding, and engaged in treatment plan with Marce Boyce [facility]. -Perceiving complete understanding of rationale by patient/guardian and willingness to adhere to formulated plan of care by prescriber with patient/guardian buy-in, willingness to participate actively in plan of care and willing to take charge of own care. -Although geared for female patients, all patients/guardians are informed by prescribing provider of risks of medications that could potentially be taken by female/women within their [place] of influence and that women who use medicine during have a higher chance of having a baby with defects. -Patient/Guardian denies being and/or knowing of women who are at present and denies wanting to become in the foreseeable future, 0-6 months from now. -Patient/Guardian again informed of the risk of pharmaceutical medications consumed during and how there are potential negative effects on the developing fetus. -Patient/Guardian verbalizes understanding of rationale and physically nods head in agreement that if a should occur, to consult with provider, COATING MIXER SUPERVISOR and/or Nurse Active Directory Engineer to determine if prescribed medications should or should not be continued. -Instructions regarding both the medical/pharmacolog ical and non-pharmacologic aspects of the treatments employed were given, and the patient/guardian seemed to understand this. Risks and benefits of treatment, and of non-treatment, were also discussed. The patient/guardian understands the more frequent side effects associated with the medications. -The use of psychotherapy was addressed today and will continue on an as needed basis for the foreseeable future. The choice is, of course, ultimately left to the patient/guardian. -Patient/Guardian was encouraged to make a follow-up appointment for the next visit. -Additional treatment was discussed and has been addressed on an ongoing basis within the context of this patient's illness, resources, progress, and other appropriate factors. Being compliant with a regular exercise routine, consistent medication use, ongoing psychotherapy, eating and sleeping well, as well as the importance of handling stress, was discussed. 10/27/2024 Other May self-administer medications or be administered own oral medications per [facility] protocols. Provided informed consent with understanding of side effects, adverse effects, risks and benefits as well as alternative treatments as previously discussed and with the above recommended medications & other aspects of the treatment program. Agrees to return sooner if symptoms worsen or suicidal or homicidal ideations occur. Unable to complete AIMS due to nature of appt, denies any irregular muscle movements; would benefit from an in person appointment. Plan: -Increase Risperidone to 1.5 mg BID (1 mg tab + 0.5 mg tab twice a day) -Continue Zolpidem 5 mg QHS PRN *no refill needed -Continue Nicotine 7mg/24hr patch *no refill needed -Follow up: 1 week [] Hard Rx handed to patient [] Rx phoned into pharmacy [x] Rx faxed/e-prescribed into pharmacy [x] PDMP Reviewed [] [employer] Reviewed Encouraged by Marce DAVIS-BC to: [x] consider utilizing therapist/counselor /electrical worker/psychologist [] continue with therapist/counselor /electrical worker/psychologist Psychoeducation: -Treatment options discussed in detail with patient/guardian verbalizing understanding of treatment rationales. -Side effects and benefits of all medications prescribed discussed at length between psychiatric prescribing provider and patient/guardian along with the risks associated of know-uo-myji interactions, including but not limited to prescription medications, OTC medications, vitamins, minerals and herbal supplements. -Patient/Guardian and provider dialogue showcased verbalized understanding from patient on rationales of medication risk vs benefits. 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 -Reduction of stress and anxiety to aid in focus and concentration discussed, again, with patient/guardian physically nodding, voicing understanding, and engaged in treatment plan with Marce MUNROEHNP-BC. -Perceiving complete understanding of rationale by patient/guardian and willingness to adhere to formulated plan of care by prescriber with patient/guardian buy-in, willingness to participate actively in plan of care and willing to take charge of own care. -Although geared for female patients, all patients/guardians are informed by prescribing provider of risks of medications that could potentially be taken by female/women within their [place] influence and that women who use medicine during have a higher chance of having a baby with defects. -Patient/Guardian denies being and/or knowing of women who are at present and denies wanting to become in the foreseeable future, 0-6 months from now. -Patient/Guardian again informed of the risk of pharmaceutical medications consumed during and how there are potential negative effects on the developing fetus. -Patient/Guardian verbalizes understanding of rationale and physically nods head in agreement that if a should occur, to consult with provider, COATING MIXER SUPERVISOR and/or Nurse Active Directory Engineer to determine if prescribed medications should or should not be continued. -Instructions regarding both the medical/pharmacolog ical and non-pharmacologic aspects of the treatments employed were given, and the patient/guardian seemed to understand this. Risks and benefits of treatment, and of non-treatment, were also discussed. The patient/guardian understands the more frequent side effects associated with the medications. -The use of psychotherapy was addressed today and will continue on an as needed basis for the foreseeable future. The choice is, of course, ultimately left to the patient/guardian. -Patient/Guardian was encouraged to make a follow-up appointment for the next visit. -Additional treatment was discussed and has been addressed on an ongoing basis within the context of this patient's illness, resources, progress, and other appropriate factors. Being compliant with a regular exercise routine, consistent medication use, ongoing psychotherapy, eating and sleeping well, as well as the importance of handling stress, was discussed. 11/03/2024 Other May self-administer medications or be administered own oral medications per [facility] protocols. Provided informed consent with understanding of side effects, adverse effects, risks and benefits as well as alternative treatments as previously discussed and with the above recommended medications & other aspects of the treatment program. Agrees to return sooner if symptoms worsen or suicidal or homicidal ideations occur. Unable to complete AIMS due to nature of appt, denies any irregular muscle movements; would benefit from an in person appointment. Plan: -Increase Risperidone to 2 mg BID -Continue Zolpidem 5 mg QHS PRN -Continue Nicotine 7 mg/24 hr patch -Start Escitalopram 10 mg once daily -Follow up: 2 weeks [] Hard Rx handed to patient [] Rx phoned into pharmacy [x] Rx faxed/e-prescribed into pharmacy [x] PDMP Reviewed [] GeneSight Reviewed Encouraged by Marce Boyce [facility]- to: [x] consider utilizing therapist/counselor /electrical worker/psychologist , referral given [] continue with therapist/counselor /electrical worker/psychologist Psychoeducation: -Treatment options discussed in detail with patient/guardian verbalizing understanding of treatment rationales. -Side effects and benefits of all medications prescribed discussed at length between psychiatric prescribing provider and patient/guardian along with the risks associated of [id number] interactions, including but not limited to prescription medications, OTC medications, vitamins, minerals and herbal supplements. -Patient/Guardian and provider dialogue showcased verbalized understanding from patient on rationales of medication risk vs benefits. 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 -Reduction of stress and anxiety to aid in focus and concentration discussed, again, with patient/guardian physically nodding, voicing understanding, and engaged in treatment plan with Marce Boyce [facility]. -Perceiving complete understanding of rationale by patient/guardian and willingness to adhere to formulated plan of care by prescriber with patient/guardian buy-in, willingness to participate actively in plan of care and willing to take charge of own care. -Although geared for female patients, all patients/guardians are informed by prescribing provider of risks of medications that could potentially be taken by female/women within their [place] of influence and that women who use medicine during have a higher chance of having a baby with defects. -Patient/Guardian denies being and/or knowing of women who are at present and denies wanting to become in the foreseeable future, 0-6 months from now. -Patient/Guardian again informed of the risk of pharmaceutical medications consumed during and how there are potential negative effects on the developing fetus. -Patient/Guardian verbalizes understanding of rationale and physically nods head in agreement that if a should occur, to consult with provider, COATING MIXER SUPERVISOR and/or Nurse Active Directory Engineer to determine if prescribed medications should or should not be continued. -Instructions regarding both the medical/pharmacolog ical and non-pharmacologic aspects of the treatments employed were given, and the patient/guardian seemed to understand this. Risks and benefits of treatment, and of non-treatment, were also discussed. The patient/guardian understands the more frequent side effects associated with the medications. -The use of psychotherapy was addressed today and will continue on an as needed basis for the foreseeable future. The choice is, of course, ultimately left to the patient/guardian. -Patient/Guardian was encouraged to make a follow-up appointment for the next visit. -Additional treatment was discussed and has been addressed on an ongoing basis within the context of this patient's illness, resources, progress, and other appropriate factors. Being compliant with a regular exercise routine, consistent medication use, ongoing psychotherapy, eating and sleeping well, as well as the importance of handling stress, was discussed. 11/15/2024 Other May self-administer medications or be administered own oral medications per [facility] protocols. Provided informed consent with understanding of side effects, adverse effects, risks and benefits as well as alternative treatments as previously discussed and with the above recommended medications & other aspects of the treatment program. Agrees to return sooner if symptoms worsen or suicidal or homicidal ideations occur. Unable to complete AIMS due to nature of appt, denies any irregular muscle movements; would benefit from an in person appointment. Plan: -Start Lurasidone 40 mg QHS with food -Stop Risperidone -Stop Escitalopram -Continue Zolpidem 5 mg QHS PRN -Continue Nicotine 7 mg/24 hr patch *pt does not need refill yet -Follow up: 1 week [] Hard Rx handed to patient [] Rx phoned into pharmacy [x] Rx faxed/e-prescribed into pharmacy [x] PDMP Reviewed [] GeneSight Reviewed Encouraged by Marce Boyce [facility]NP[facility] to: [x] consider utilizing therapist/counselor /electrical worker/psychologist , referral given [] continue with therapist/counselor /electrical worker/psychologist Psychoeducation: -Treatment options discussed in detail with patient/guardian verbalizing understanding of treatment rationales. -Side effects and benefits of all medications prescribed discussed at length between psychiatric prescribing provider and patient/guardian along with the risks associated of uftt-fy-[id number] interactions, including but not limited to prescription medications, OTC medications, vitamins, minerals and herbal supplements. -Patient/Guardian and provider dialogue showcased verbalized understanding from patient on rationales of medication risk vs benefits. 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 -Reduction of stress and anxiety to aid in focus and concentration discussed, again, with patient/guardian physically nodding, voicing understanding, and engaged in treatment plan with Marce Boyce [facility]. -Perceiving complete understanding of rationale by patient/guardian and willingness to adhere to formulated plan of care by prescriber with patient/guardian buy-in, willingness to participate actively in plan of care and willing to take charge of own care. -Although geared for female patients, all patients/guardians are informed by prescribing provider of risks of medications that could potentially be taken by female/women within their [place] influence and that women who use medicine during have a higher chance of having a baby with defects. -Patient/Guardian denies being and/or knowing of women who are at present and denies wanting to become in the foreseeable future, 0-6 months from now. -Patient/Guardian again informed of the risk of pharmaceutical medications consumed during and how there are potential negative effects on the developing fetus. -Patient/Guardian verbalizes understanding of rationale and physically nods head in agreement that if a should occur, to consult with provider, COATING MIXER SUPERVISOR and/or Nurse Active Directory Engineer to determine if prescribed medications should or should not be continued. -Instructions regarding both the medical/pharmacolog ical and non-pharmacologic aspects of the treatments employed were given, and the patient/guardian seemed to understand this. Risks and benefits of treatment, and of non-treatment, were also discussed. The patient/guardian understands the more frequent side effects associated with the medications. -The use of psychotherapy was addressed today and will continue on an as needed basis for the foreseeable future. The choice is, of course, ultimately left to the patient/guardian. -Patient/Guardian was encouraged to make a follow-up appointment for the next visit. -Additional treatment was discussed and has been addressed on an ongoing basis within the context of this patient's illness, resources, progress, and other appropriate factors. Being compliant with a regular exercise routine, consistent medication use, ongoing psychotherapy, eating and sleeping well, as well as the importance of handling stress, was discussed. 11/22/2024 Other May self-administer medications or be administered own oral medications per [facility] protocols. Provided informed consent with understanding of side effects, adverse effects, risks and benefits as well as alternative treatments as previously discussed and with the above recommended medications & other aspects of the treatment program. Agrees to return sooner if symptoms worsen or suicidal or homicidal ideations occur. Unable to complete full AIMS due to nature of appt, denies any irregular muscle movements or facial tics; no irregular movements observed during Zoom appt. Plan: -Increase Lurasidone to 60 mg QHS with food -Continue Zolpidem 5 mg QHS PRN *no refill needed -Continue Nicotine 7 mg/24 hr patch *no refill needed -Follow up: 2 weeks [] Hard Rx handed to patient [] Rx phoned into pharmacy [x] Rx faxed/e-prescribed into pharmacy [x] PDMP Reviewed [] GeneSight Reviewed Encouraged by Marce Boyce [facility]NP[facility] to: [x] consider utilizing therapist/counselor /electrical worker/psychologist , referral given [] continue with therapist/counselor /electrical worker/psychologist Psychoeducation: -Treatment options discussed in detail with patient/guardian verbalizing understanding of treatment rationales. -Side effects and benefits of all medications prescribed discussed at length between psychiatric prescribing provider and patient/guardian along with the risks associated of cwcy-aa-heso interactions, including but not limited to prescription medications, OTC medications, vitamins, minerals and herbal supplements. -Patient/Guardian and provider dialogue showcased verbalized understanding from patient on rationales of medication risk vs benefits. 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 -Reduction of stress and anxiety to aid in focus and concentration discussed, again, with patient/guardian physically nodding, voicing understanding, and engaged in treatment plan with Marce Boyce [facility]. -Perceiving complete understanding of rationale by patient/guardian and willingness to adhere to formulated plan of care by prescriber with patient/guardian buy-in, willingness to participate actively in plan of care and willing to take charge of own care. -Although geared for female patients, all patients/guardians are informed by prescribing provider of risks of medications that could potentially be taken by female/women within their [place] influence and that women who use medicine during have a higher chance of having a baby with defects. -Patient/Guardian denies being and/or knowing of women who are at present and denies wanting to become in the foreseeable future, 0-6 months from now. -Patient/Guardian again informed of the risk of pharmaceutical medications consumed during and how there are potential negative effects on the developing fetus. -Patient/Guardian verbalizes understanding of rationale and physically nods head in agreement that if a should occur, to consult with provider, COATING MIXER SUPERVISOR and/or Nurse Active Directory Engineer to determine if prescribed medications should or should not be continued. -Instructions regarding both the medical/pharmacolog ical and non-pharmacologic aspects of the treatments employed were given, and the patient/guardian seemed to understand this. Risks and benefits of treatment, and of non-treatment, were also discussed. The patient/guardian understands the more frequent side effects associated with the medications. -The use of psychotherapy was addressed today and will continue on an as needed basis for the foreseeable future. The choice is, of course, ultimately left to the patient/guardian. -Patient/Guardian was encouraged to make a follow-up appointment for the next visit. -Additional treatment was discussed and has been addressed on an ongoing basis within the context of this patient's illness, resources, progress, and other appropriate factors. Being compliant with a regular exercise routine, consistent medication use, ongoing psychotherapy, eating and sleeping well, as well as the importance of handling stress, was discussed. 12/08/2024 Other May self-administer medications or be administered own oral medications per [facility] protocols. Provided informed consent with understanding of side effects, adverse effects, risks and benefits as well as alternative treatments as previously discussed and with the above recommended medications & other aspects of the treatment program. Agrees to return sooner if symptoms worsen or suicidal or homicidal ideations occur. Unable to complete full AIMS due to nature of appt, denies any irregular muscle movements or facial tics; no irregular movements observed during Zoom appt. Plan: -Increase Lurasidone to 80 mg QHS w/ food -Continue Zolpidem 5 mg QHS PRN *sending 30 day rx, patient still has 7 day supply at home -Continue Nicotine 7 mg/24 hr patch *no refill needed -Start Fluoxetine 20 mg once daily -Patient is on Gabapentin from pain management doctor -Follow up: 2 weeks [] Hard Rx handed to patient [] Rx phoned into pharmacy [x] Rx faxed/e-prescribed into pharmacy [x] PDMP Reviewed [] GeneSight Reviewed Encouraged by Marce MUNROEHNP-BC to: [x] consider utilizing therapist/counselor /electrical worker/psychologist , referral given [] continue with therapist/counselor /electrical worker/psychologist Psychoeducation: -Treatment options discussed in detail with patient/guardian verbalizing understanding of treatment rationales. -Side effects and benefits of all medications prescribed discussed at length between psychiatric prescribing provider and patient/guardian along with the risks associated of fqbl-nj-fzdd interactions, including but not limited to prescription medications, OTC medications, vitamins, minerals and herbal supplements. -Patient/Guardian and provider dialogue showcased verbalized understanding from patient on rationales of medication risk vs benefits. 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 -Reduction of stress and anxiety to aid in focus and concentration discussed, again, with patient/guardian physically nodding, voicing understanding, and engaged in treatment plan with Marce MUNROEHNP-BC. -Perceiving complete understanding of rationale by patient/guardian and willingness to adhere to formulated plan of care by prescriber with patient/guardian buy-in, willingness to participate actively in plan of care and willing to take charge of own care. -Although geared for female patients, all patients/guardians are informed by prescribing provider of risks of medications that could potentially be taken by female/women within their [place] influence and that women who use medicine during have a higher chance of having a baby with defects. -Patient/Guardian denies being and/or knowing of women who are at present and denies wanting to become in the foreseeable future, 0-6 months from now. -Patient/Guardian again informed of the risk of pharmaceutical medications consumed during and how there are potential negative effects on the developing fetus. -Patient/Guardian verbalizes understanding of rationale and physically nods head in agreement that if a should occur, to consult with provider, COATING MIXER SUPERVISOR and/or Nurse Active Directory Engineer to determine if prescribed medications should or should not be continued. -Instructions regarding both the medical/pharmacolog ical and non-pharmacologic aspects of the treatments employed were given, and the patient/guardian seemed to understand this. Risks and benefits of treatment, and of non-treatment, were also discussed. The patient/guardian understands the more frequent side effects associated with the medications. -The use of psychotherapy was addressed today and will continue on an as needed basis for the foreseeable future. The choice is, of course, ultimately left to the patient/guardian. -Patient/Guardian was encouraged to make a follow-up appointment for the next visit. -Additional treatment was discussed and has been addressed on an ongoing basis within the context of this patient's illness, resources, progress, and other appropriate factors. Being compliant with a regular exercise routine, consistent medication use, ongoing psychotherapy, eating and sleeping well, as well as the importance of handling stress, was discussed. 12/22/2024 Other May self-administer medications or be administered own oral medications per [facility] protocols. Provided informed consent with understanding of side effects, adverse effects, risks and benefits as well as alternative treatments as previously discussed and with the above recommended medications & other aspects of the treatment program. Agrees to return sooner if symptoms worsen or suicidal or homicidal ideations occur. Unable to complete AIMS due to nature of appt, denies any irregular muscle movements; would benefit from an in person appointment. Plan: -Continue Lurasidone 80 mg QHS -Continue Zolpidem 5 mg QHS PRN *30 day filled 12/13 -Continue Nicotine 7 mg/24 hr patch -Continue Fluoxetine 20 mg once daily *30 day sent 4/30 -Start Lamotrigine 25 mg x2 weeks -Start Hydroxyzine 25 mg TID PRN -Patient is on Pregabalin 300 mg BID from pain management doctor -Follow up: 2 weeks [] Hard Rx handed to patient [] Rx phoned into pharmacy [x] Rx faxed/e-prescribed into pharmacy [x] PDMP Reviewed [] GeneSight Reviewed Encouraged by Marce Boyce [facility]- to: [x] consider utilizing therapist/counselor /electrical worker/psychologist , referral given [] continue with therapist/counselor /electrical worker/psychologist Psychoeducation: -Treatment options discussed in detail with patient/guardian verbalizing understanding of treatment rationales. -Side effects and benefits of all medications prescribed discussed at length between psychiatric prescribing provider and patient/guardian along with the risks associated of miij-aq-rupr interactions, including but not limited to prescription medications, OTC medications, vitamins, minerals and herbal supplements. -Patient/Guardian and provider dialogue showcased verbalized understanding from patient on rationales of medication risk vs benefits. 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 -Reduction of stress and anxiety to aid in focus and concentration discussed, again, with patient/guardian physically nodding, voicing understanding, and engaged in treatment plan with Marce Boyce [facility]. -Perceiving complete understanding of rationale by patient/guardian and willingness to adhere to formulated plan of care by prescriber with patient/guardian buy-in, willingness to participate actively in plan of care and willing to take charge of own care. -Although geared for female patients, all patients/guardians are informed by prescribing provider of risks of medications that could potentially be taken by female/women within their [place] influence and that women who use medicine during have a higher chance of having a baby with defects. -Patient/Guardian denies being and/or knowing of women who are at present and denies wanting to become in the foreseeable future, 0-6 months from now. -Patient/Guardian again informed of the risk of pharmaceutical medications consumed during and how there are potential negative effects on the developing fetus. -Patient/Guardian verbalizes understanding of rationale and physically nods head in agreement that if a should occur, to consult with provider, COATING MIXER SUPERVISOR and/or Nurse Active Directory Engineer to determine if prescribed medications should or should not be continued. -Instructions regarding both the medical/pharmacolog ical and non-pharmacologic aspects of the treatments employed were given, and the patient/guardian seemed to understand this. Risks and benefits of treatment, and of non-treatment, were also discussed. The patient/guardian understands the more frequent side effects associated with the medications. -The use of psychotherapy was addressed today and will continue on an as needed basis for the foreseeable future. The choice is, of course, ultimately left to the patient/guardian. -Patient/Guardian was encouraged to make a follow-up appointment for the next visit. -Additional treatment was discussed and has been addressed on an ongoing basis within the context of this patient's illness, resources, progress, and other appropriate factors. Being compliant with a regular exercise routine, consistent medication use, ongoing psychotherapy, eating and sleeping well, as well as the importance of handling stress, was discussed. 01/11/2025 Other May self-administer medications or be administered own oral medications per [facility] protocols. Provided informed consent with understanding of side effects, adverse effects, risks and benefits as well as alternative treatments as previously discussed and with the above recommended medications & other aspects of the treatment program. Agrees to return sooner if symptoms worsen or suicidal or homicidal ideations occur. Medication Hx: -Xanax (received from friends) -Risperidone made her feel dizzy and like a zombie-pt stopped taking it herself Plan: -Continue Lurasidone 80 mg QHS -Continue Zolpidem 5 mg QHS PRN -Continue Nicotine 7 mg/24 hr patch -Continue Fluoxetine 20 mg once daily -Increase Lamotrigine to 50 mg x2 weeks -Continue Hydroxyzine 25 mg TID PRN *Patient is on Pregabalin 300 mg BID from pain management doctor *pt needs to be seen in person by 10/2025 *labs drawn 10/2024 -Follow up: 2 weeks [] Hard Rx handed to patient [] Rx phoned into pharmacy [x] Rx faxed/e-prescribed into pharmacy [x] PDMP Reviewed [] GeneSight Reviewed Encouraged by Marce Boyce PMHNP-BC to: [x] consider utilizing therapist/counselor /electrical worker/psychologist , referral given [] continue with therapist/counselor /electrical worker/psychologist Psychoeducation: -Treatment options discussed in detail with patient/guardian verbalizing understanding of treatment rationales. -Side effects and benefits of all medications prescribed discussed at length between psychiatric prescribing provider and patient/guardian along with the risks associated of earh-ap-syrh interactions, including but not limited to prescription medications, OTC medications, vitamins, minerals and herbal supplements. -Patient/Guardian and provider dialogue showcased verbalized understanding from patient on rationales of medication risk vs benefits. 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 -Reduction of stress and anxiety to aid in focus and concentration discussed, again, with patient/guardian physically nodding, voicing understanding, and engaged in treatment plan with Marce Boyce [facility]. -Perceiving complete understanding of rationale by patient/guardian and willingness to adhere to formulated plan of care by prescriber with patient/guardian buy-in, willingness to participate actively in plan of care and willing to take charge of own care. -Although geared for female patients, all patients/guardians are informed by prescribing provider of risks of medications that could potentially be taken by female/women within their [place] of influence and that women who use medicine during have a higher chance of having a baby with defects. -Patient/Guardian denies being and/or knowing of women who are at present and denies wanting to become in the foreseeable future, 0-6 months from now. -Patient/Guardian again informed of the risk of pharmaceutical medications consumed during and how there are potential negative effects on the developing fetus. -Patient/Guardian verbalizes understanding of rationale and physically nods head in agreement that if a should occur, to consult with provider, COATING MIXER SUPERVISOR and/or Nurse Active Directory Engineer to determine if prescribed medications should or should not be continued. -Instructions regarding both the medical/pharmacolog ical and non-pharmacologic aspects of the treatments employed were given, and the patient/guardian seemed to understand this. Risks and benefits of treatment, and of non-treatment, were also discussed. The patient/guardian understands the more frequent side effects associated with the medications. -The use of psychotherapy was addressed today and will continue on an as needed basis for the foreseeable future. The choice is, of course, ultimately left to the patient/guardian. -Patient/Guardian was encouraged to make a follow-up appointment for the next visit. -Additional treatment was discussed and has been addressed on an ongoing basis within the context of this patient's illness, resources, progress, and other appropriate factors. Being compliant with a regular exercise routine, consistent medication use, ongoing psychotherapy, eating and sleeping well, as well as the importance of handling stress, was discussed. 03/09/2025 Other May self-administer medications or be administered own oral medications per [facility] protocols. Provided informed consent with understanding of side effects, adverse effects, risks and benefits as well as alternative treatments as previously discussed and with the above recommended medications & other aspects of the treatment program. Agrees to return sooner if symptoms worsen or suicidal or homicidal ideations occur. Unable to complete full AIMS due to nature of appt, denies any irregular muscle movements or facial tics; no irregular movements observed during Zoom appt. Medication Hx: -Xanax (received from friends) -Risperidone made her feel dizzy and like a zombie-pt stopped taking it herself -Lamotrigine (pt stopped at 50 mg-felt like it wasn't effective, may come back to it) Medication Plan: -Continue Lurasidone 80 mg QHS -Continue Zolpidem 5 mg QHS PRN -Continue Fluoxetine 20 mg once daily *restarted on 03/02/25 -Start Propranolol 10 mg BID PRN -Stop Lamotrigine 50 mg (pt hasn't been taking) -Stop Hydroxyzine 25 mg TID PRN -Stop Nicotine 7 mg/24 hr patch (pt requested to stop-states she only vapes nicotine every once in a while now) *Patient is on Pregabalin 300 mg BID from pain management doctor -Follow up: 2 weeks [] Hard Rx handed to patient [] Rx phoned into pharmacy [x] Rx faxed/e-prescribed into pharmacy [x] PDMP Reviewed [] [employer] Reviewed Encouraged by Marce Boyce PMHNP-BC to: [x] consider utilizing therapist/counselor /electrical worker/psychologist , referral given [] continue with therapist/counselor /electrical worker/psychologist Psychoeducation: -Treatment options discussed in detail with patient/guardian verbalizing understanding of treatment rationales. -Side effects and benefits of all medications prescribed discussed at length between psychiatric prescribing provider and patient/guardian along with the risks associated of sohf-ol-aycr interactions, including but not limited to prescription medications, OTC medications, vitamins, minerals and herbal supplements. -Patient/Guardian and provider dialogue showcased verbalized understanding from patient on rationales of medication risk vs benefits. 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 -Reduction of stress and anxiety to aid in focus and concentration discussed, again, with patient/guardian physically nodding, voicing understanding, and engaged in treatment plan with Marce Boyce [facility]. -Perceiving complete understanding of rationale by patient/guardian and willingness to adhere to formulated plan of care by prescriber with patient/guardian buy-in, willingness to participate actively in plan of care and willing to take charge of own care. -Although geared for female patients, all patients/guardians are informed by prescribing provider of risks of medications that could potentially be taken by female/women within their [place] of influence and that women who use medicine during have a higher chance of having a baby with defects. -Patient/Guardian denies being and/or knowing of women who are at present and denies wanting to become in the foreseeable future, 0-6 months from now. -Patient/Guardian again informed of the risk of pharmaceutical medications consumed during and how there are potential negative effects on the developing fetus. -Patient/Guardian verbalizes understanding of rationale and physically nods head in agreement that if a should occur, to consult with provider, COATING MIXER SUPERVISOR and/or Nurse Active Directory Engineer to determine if prescribed medications should or should not be continued. -Instructions regarding both the medical/pharmacolog ical and non-pharmacologic aspects of the treatments employed were given, and the patient/guardian seemed to understand this. Risks and benefits of treatment, and of non-treatment, were also discussed. The patient/guardian understands the more frequent side effects associated with the medications. -The use of psychotherapy was addressed today and will continue on an as needed basis for the foreseeable future. The choice is, of course, ultimately left to the patient/guardian. -Patient/Guardian was encouraged to make a follow-up appointment for the next visit. -Additional treatment was discussed and has been addressed on an ongoing basis within the context of this patient's illness, resources, progress, and other appropriate factors. Being compliant with a regular exercise routine, consistent medication use, ongoing psychotherapy, eating and sleeping well, as well as the importance of handling stress, was discussed. 04/27/2025 Other May self-administer medications or be administered own oral medications per [facility] protocols. Provided informed consent with understanding of side effects, adverse effects, risks and benefits as well as alternative treatments as previously discussed and with the above recommended medications & other aspects of the treatment program. Agrees to return sooner if symptoms worsen or suicidal or homicidal ideations occur. Unable to complete AIMS due to nature of appt, denies any irregular muscle movements; would benefit from an in person appointment. Medication Hx: -Xanax (received from friends) -Risperidone made her feel dizzy and like a zombie-pt stopped taking it herself -Lamotrigine (pt stopped at 50 mg-felt like it wasn't effective, may come back to it) Medication Plan: -Continue Lurasidone 80 mg QHS -Decrease Zolpidem 5 mg to 0.5 tablet QHS PRN -Continue Fluoxetine 20 mg once daily -Continue Propranolol 10 mg BID PRN *Patient is on Pregabalin 300 mg BID from pain management doctor -Follow up: 4 weeks [] Hard Rx handed to patient [] Rx phoned into pharmacy [x] Rx faxed/e-prescribed into pharmacy [x] PDMP Reviewed [] [employer] Reviewed Encouraged by Marce Boyce PMHNP- to: [] consider utilizing therapist/counselor /electrical worker/psychologist , referral given [] continue with therapist/counselor /electrical worker/psychologist Psychoeducation: -Treatment options discussed in detail with patient/guardian verbalizing understanding of treatment rationales. -Side effects and benefits of all medications prescribed discussed at length between psychiatric prescribing provider and patient/guardian along with the risks associated of eqtr-iv-rvvl interactions, including but not limited to prescription medications, OTC medications, vitamins, minerals and herbal supplements. -Patient/Guardian and provider dialogue showcased verbalized understanding from patient on rationales of medication risk vs benefits. 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 -Reduction of stress and anxiety to aid in focus and concentration discussed, again, with patient/guardian physically nodding, voicing understanding, and engaged in treatment plan with Marce Boyce [facility]. -Perceiving complete understanding of rationale by patient/guardian and willingness to adhere to formulated plan of care by prescriber with patient/guardian buy-in, willingness to participate actively in plan of care and willing to take charge of own care. -Although geared for female patients, all patients/guardians are informed by prescribing provider of risks of medications that could potentially be taken by female/women within their [place] of influence and that women who use medicine during have a higher chance of having a baby with defects. -Patient/Guardian denies being and/or knowing of women who are at present and denies wanting to become in the foreseeable future, 0-6 months from now. -Patient/Guardian again informed of the risk of pharmaceutical medications consumed during and how there are potential negative effects on the developing fetus. -Patient/Guardian verbalizes understanding of rationale and physically nods head in agreement that if a should occur, to consult with provider, COATING MIXER SUPERVISOR and/or Nurse Active Directory Engineer to determine if prescribed medications should or should not be continued. -Instructions regarding both the medical/pharmacolog ical and non-pharmacologic aspects of the treatments employed were given, and the patient/guardian seemed to understand this. Risks and benefits of treatment, and of non-treatment, were also discussed. The patient/guardian understands the more frequent side effects associated with the medications. -The use of psychotherapy was addressed today and will continue on an as needed basis for the foreseeable future. The choice is, of course, ultimately left to the patient/guardian. -Patient/Guardian was encouraged to make a follow-up appointment for the next visit. -Additional treatment was discussed and has been addressed on an ongoing basis within the context of this patient's illness, resources, progress, and other appropriate factors. Being compliant with a regular exercise routine, consistent medication use, ongoing psychotherapy, eating and sleeping well, as well as the importance of handling stress, was discussed. Plan Of Treatment No Information Insurance Providers Payer Name Payer Address Payer Phone Subscriber Number Group Number Insured Name Patient Relationship to Insured Coverage Start Date Coverage End Date [facility] [address] [place] [address] [id number] Ruth Campos Self - patient is the insured 5 5 [facility] Att Claims Department [address] [place] [address] [id number] Ruth Campos Self - patient is the insured 5 [facility] Claims Department [address] [place] [address] [id number] Ruth Campos Self - patient is the insured 5 [employer] [address] [place] [address] [id number] Ruth Campos Self - patient is the insured 5 Medical (General) History Medical History History ICD Code schizophrenia depression Anxiety disorder obsessive-compulsive personality disorde r osteoarthritis hypoglycemia Surgical History Surgery Date(Month/Year) hysterectomy 2009 lower lumbar 2019 Hospitalization History Reason Date(Month/Year) lower lumbar 2019 hysterectomy 2009
--- OUTSIDE RECORDS SUMMARY | 2025-05-26 07:55 | XMS_ITS | Clinical Summary ---
Author Organization [facility] [employer] Address [address] [place] [address] Care Team Providers Care Manufacturing Chief Engineer Name Role Phone Helene Tse Primary Care Provider Karissa Jackson MD Unavailable Source Comments [facility] [employer],non-owned Affiliates and Associated Physician Practices is amultiple site organization consisting of ambulatory clinics and hospital sitesin [place], [place], [place] and [place]. This disclosure is being madepursuant to the Care Everywhere program and may not contain all information available regarding this patient. Last updated 18.[facility] [employer] Allergies No known active allergies Medications * Be aware that medications may not be up to date on this document. Alwaysverify current medications with the patient. cyclobenzaprin e (FLEXERIL) 5 MG tabletIndicati ons:Pain in both lower extremities,Ch ronic bilateral low back pain without sciatica Take 1 tablet by mouth at bedtime 30 tablet 9 Active ibuprofen (MOTRIN) 800 MG tablet Take 1 (one) tablet by mouth every 6 hours as needed for Pain Active zolpidem (AMBIEN) 5 MG tablet TAKE 1 TABLET BY MOUTH EVERY NIGHT NEEDED FOR SLEEP 1 Active risperiDONE (RisperDAL) 1 MG tablet Take 1 (one) tablet by mouth 2 times daily 5 Active nicotine (Nicoderm CQ) 7 MG/24HR patch 5 Active lidocaine (Lidoderm) 5 % patch 5 Active Latuda 40 MG tablet Take 1 (one) tablet by mouth at bedtime 5 Active meloxicam (Mobic) 15 MG tablet Take 1 (one) tablet by mouth once daily 30 tablet 5 Active gabapentin (Neurontin) 300 MG capsule TAKE 1 CAPSULE BY MOUTH THREE TIMES A DAY 90 capsule 2 5 Active gabapentin (Neurontin) 300 MG capsule TAKE 1 CAPSULE BY MOUTH THREE TIMES A DAY 90 capsule 5 05/13/20 25 Discontinued Active Problems Problem Noted Date Diagnosed Date Synovial cyst of lumbar spine 10/28/2018 Chronic back pain 08/17/2018 Encounters Date Type Department Care Team Description 05/13/2025 Refill [facility] - Pain Management [address] [place] [phone] Bert Chow MD Refill Request 04/21/2025 Telephone [facility] - Rheumatology [address] [place] [address] Karissa Jackson MD Record Request 03/25/2025 Telephone [facility] - Rheumatology [address] [place] [address] Karissa Jackson MD Record Request 03/21/2025 Refill [facility] - Pain Management [address] [place] [phone] Bert Chow MD Refill Request from Last 3 Months Family History Medical History Relation Name Comments Cancer - Other Mother Relation Name Status Comments Mother Social History Tobacco Use Types Packs/Day Years Used Date Smoking Tobacco: Former Cigarettes Q uit: 09/01/2018 Smokeless Tobacco: Never Tobacco Cessation:Counseling Given: Not Answered Alcohol Use Standard Drinks/Week Comments No 0 (1 standard drink = 0.6 oz pur e alcohol) Only on occasion PHQ-2 Answer Date Recorded Patient Health Questionnaire-2 Score 2 11/02/2024 Comments No Sex and Gender Information Value Date Recorded Sex Assigned at Not on file Legal Sex Female 10:21 AM SOFTWARE DEVELOPER CONSULTANT Gender Identity Not on file Sexual Orientation Not on file Last Filed Vital Signs Vital Sign Reading Time Taken Comments Blood Pressure 125/77 12/08/2024 1:12 PM CDT Pulse 83 12/08/2024 1:12 PM CDT Temperature 36.4 C (97.5 F) 12/08/2024 10:25 AM CDT Respiratory Rate 16 11/02/2024 11:36 AM CDT Oxygen Saturation 98% 12/08/2024 10:25 AM CDT Inhaled Oxygen Concentration 21% 02/05/2019 4 :20 PM CDT Weight 76.2 kg (168 lb) 12/08/2024 1:12 PM CDT Height 162.6 cm (5' 4) 12/08/2024 1:12 PM CDT Body Mass Index 28.84 12/08/2024 1:12 PM CDT Plan of Treatment Upcoming Encounters Date Type Department Care Team (Late st Contact Info) Description 06/28/2025 10:00 AM SOFTWARE DEVELOPER CONSULTANT Office Visit [facility] - Internal Med [address] [place] [address] Yolanda Bourgeois, JAYDA-GREEN CHAIN OPERATOR [address] [place] [address] Health Maintenance Due Date Last Done Comments COLOGUARD (AGES 45-75) - COLON CA SCREENING 1965 COLON MONITORING 1965 COLONOSCOPY - COLON CA SCREENING 1965 CT COLONOGRAPHY - COLON CA SCREENING 1965 Colorectal Cancer Screening 1965 FIT - COLON CA SCREENING 1965 FLEX SIG - COLON CA SCREENING 1965 HIV SCREENING 1980 HEPATITIS C SCREENING 10/18/1983 DTAP/TDAP/TD VACCINES (1 - Tdap) 1984 HEPATITIS B VACCINE (1 of 3 - 19+ 3-dose series) 1984 PNEUMOCOCCAL VACCINE 50+ (1 of 1 - PCV) 10/23/2015 ZOSTER VACCINE (1 of 2) 10/23/2015 MAMMOGRAM 09/02/2020 09/02/2018, 08/12, 06/02/2014, Additional history exists LIPID TESTING 07/24/2023 07/24/2018 SCREENING FOR DIABETES 05/17/2024 9, 02/08/2019, 02/07/2019, Additional history exists COVID-19 VACCINE ( season) 2025 INFLUENZA VACCINE (#1) 2025 9, 05/20/2018, 05/08/2018 DEPRESSION SCREENING Completed 08/31/2024 HIB VACCINE Aged Out No longer eligi ble based on patient's age to complete this topic HPV VACCINE Aged Out No longer eligi ble based on patient's age to complete this topic MENINGOCOCCAL (Group B) VACCINE SHARED DECISION-MAKING Aged Out No longer eligible based on patient's age to complete this topic MENINGOCOCCAL GROUPS A/C/Y/W VACCINE Aged Out No longer eligible based on patient's age to complete this topic Goals Goal Patient Goal Type Associated Problems Recent Progress Patient-Stated? Author Mobility General No Carmen Ott RN Note: Expected end date: 08/10/2021 The goal is to maintain or improve your mobility at the optimum level for you. Interventions: Medical Devices Implanted Type Area Public Health Informatician Device Identifier Shelf Expiration Date Model / Serial / Lot Screw 6.5mm 40mm Spne Ma Nydia Xtd Tab Implanted:Qty: 4 on 02/05/2019 by Denzel Roldan MD at [facility] N/A: Spine Lumbar Medtronic Sofamor [employer] [id number] / / Screw Set Ti 4.75mm Spne Perc Solera Implanted:Qty: 4 on 02/05/2019 by Denzel Roldan MD at [facility] N/A: Spine Lumbar Medtronic Sofamor [employer] [id number] / / Graft Tissue Drgn + Bvn Clgn Mtrx 2x2in Implanted:Qty: 1 on 02/05/2019 by Denzel Roldan MD at [facility] N/A: Spine Lumbar Integra Neuro[employer]iences 09/10/2021 [id number] / / Slnt Dura Duraseal Pg Trilysine Amine 5 Implanted:Qty: 1 on 02/05/2019 by Denzel Roldan MD at [facility] N/A: Spine Lumbar Integra Lifesciences Naun 03/10/2020 [id number] / / [id number] Graft Bone Grftn Dbm 5cc Ptty Jr - [id number] Implanted:Qty: 1 on 02/05/2019 by Denzel Roldan MD at [facility] N/A: Spine Lumbar [employer] Inc 06/30/2021 [id number] / [id number] / Expandable Interbody Device, Extra Lordotic Implanted:Qty: 1 on 02/05/2019 by Denzel Roldan MD at [facility] N/A: Spine Lumbar Medtronic Sofamor [employer] 11/17/2025 [id number] / / [id number] Marciano Spin Perc Moly 4.75mm X 30mm Implanted:Qty: 1 on 02/05/2019 by Denzel Roldan MD at [facility] N/A: Spine Lumbar Medtronic Sofamor [employer] [id number] / / Voyager Percutaneous Marciano Implanted:Qty: 1 on 02/05/2019 by Denzel Roldan MD at [facility] N/A: Spine Lumbar Medtronic Sofamor [employer] [id number] / / Explanted Type Area Public Health Informatician Device Identifier Shelf Expiration Date Model / Serial / Lot Gw Orth 24in Thrd Ucss Explanted:Qty: 10 on 02/05/2019 at [facility] N/A: Spine Lumbar Medtronic Sofamor [employer] [id number] / / Procedures Procedure Name Priority Date/Time Associated Diagnosis Comments BASIC METABOLIC PANEL (CALCIUM TOTAL) AM Draw 02/10/2019 1:06 PM CDT from Last 3 Months or Most Recently Relevant to Health Maintenance Results * (ABNORMAL) BASIC METABOLIC PANEL (CALCIUM TOTAL) (02/10/2019 1:06 PM CDT) BUN 11 7 - 26 mg/dL 02/10/2019 2:08 PM CDT [facility] Creatinine 0.7 0.6 - 1.2 mg/dL 02/10/2019 2:08 PM CDT [facility] Sodium 139 136 - 145 mmol/L 02/10/2019 2:08 PM [facility] Potassium 3.7 3.5 - 4.5 mmol/L 02/10/2019 2:08 PM [facility] Chloride 102 98 - 107 mmol/L 02/10/2019 2:08 PM [facility] CO2 20(L) 22 - 29 mmol/L 02/10/2019 2:08 PM [facility] Glucose 109 70 - 115 mg/dL 02/10/2019 2:08 PM [facility] Calcium 9.8 8.4 - 10.2 mg/dL 02/10/2019 2:08 PM [facility] Anion Gap 21(H) 8 - 18 02/10/2019 2:08 PM [facility] BUN/Creatinine Ratio 16 7 - 23 02/10/2019 2:08 PM [facility] Osmolality Calculated 288 270 - 300 mOsm/kg 02/10/2019 2:08 PM [facility] eGFR >60 >60 mL/min/1.7 3 m2 02/10/2019 2:08 PM [facility] Blood BLOOD SPECIMEN / Unknown Lab Venipuncture / Unknown 02/10/2019 1:06 PM CDT 02/10/2019 1:25 PM CDT Juana Nevarez TAPER PRINTED CIRCUIT LAYOUT-GREEN CHAIN OPERATOR LAB - CHEMISTRY ORDERABLES F inal Result Performing Organization Address City/State/[facility] Co de Phone Number [facility] [address] [phone] from Last 3 Months or Most Recently Relevant to Health Maintenance Insurance [facility] Advance Directives * Full Code (Latest Code Status on File) Date Activated Date Inactivated Comments 02/05/2019 3:41 PM 02/12/2019 2:48 PM Care Teams Manufacturing Chief Engineer Relationship Specialty Start [place] [address] [address] [facility] [address] [place], [phone] PCP - General Physician Learning Engineer 12/08/24 [place] [address] [place], [phone] Rheumatology 12/08/24
--- OUTSIDE RECORDS SUMMARY | 2025-05-26 07:55 | XMS_ITS | Encounter Summary ---
Author Organization [facility] Address [address] 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 Requested Prescriptions Pending Prescriptions Disp Refills Pregabalin 300 MG Capsule [Pharmacy Med Name: PREGABALIN 300MG CAPSULES] 60 Capsule Sig: TAKE 1 CAPSULE BY MOUTH TWICE DAILY healthfinch Not Delegated - Neurology: Anticonvulsants - Controlled Substances Failed - 03/19/2021 3:31 PM Failed - This refill cannot be delegated Passed - Valid encounter within last 12 months Past Office Visits Recent Outpatient Visits 3 months ago Chronic midline low back pain without sciatica [facility] - Dodie Hsue, CHEMICAL BLENDER, DRESSMAKING TEACHER 4 months ago [facility]END[facility], DRESSMAKING TEACHER 1 year ago Chronic midline low back pain without sciatica [facility] [place] Mooney, Azul, CHEMICAL BLENDER, DRESSMAKING TEACHER 1 year ago Severe major depression (HCC) [facility] [place] Shirleyeck Azul, CHEMICAL BLENDER, DRESSMAKING TEACHER 1 year ago Recent weight gain [facility] [place] Ferneck, Azul, CHEMICAL BLENDER, DRESSMAKING TEACHER Upcoming Appointments WHITE HAT HACKER - Recent and Past Visits Recent Visits Date Type Provider Dept 12/04/20 Office Visit Dodie Mooneye CHEMICAL BLENDER, DRESSMAKING TEACHER [facility] 11/03/20 Office Visit Ashley Mooneyanne CHEMICAL BLENDER, DRESSMAKING TEACHER [facility] 02/01/20 Office Visit StroAshley fieldanne, CHEMICAL BLENDER, DRESSMAKING TEACHER [facility] Showing recent visits within past 460 days with a meds authorizing provider and meeting all other requirements Future Appointments No visits were found meeting these conditions. Showing future appointments within next 90 days with a meds authorizing provider and meeting all other requirements documented in this encounter Plan of Treatment Not on file documented as of this encounter Visit Diagnoses Diagnosis Lumbar radiculopathy- Primary Thoracic or lumbosacral neuritis or radiculitis, unspecified documented in this encounter Additional Health Concerns Assessment Noted Time PHQ-9 Depression Total Score: 0 11/04/19 21 4:00 PM CDT documented as of this encounter Care Teams Planer Tailer Relationship Specialty Start Date End Date Alfredo Zacarias MD [address] [place] [address] PCP - General Family Medicine 07/24/18 12/08/23 documented as of this encounter
--- OUTSIDE RECORDS SUMMARY | 2025-05-26 07:55 | XMS_ITS | Encounter Summary ---
Author Organization [facility] Address [address] [place] [address] Phone Care Team Providers Care Honing Machine Set Up Operator Tool Name Role Phone Alfredo Zacarias MD Primary Care Provider [phone] Reason for Visit * Reason Comments Medication Refill Encounter Details Date Type Department Care Team (Late st Contact Info) Description 05/06/2021 Refill 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 Requested Prescriptions Pending Prescriptions Disp Refills zolpidem (AMBIEN) 5 MG Tablet [Pharmacy Med Name: ZOLPIDEM 5MG TABLETS] 30 Tablet Sig: TAKE 1 TABLET BY MOUTH EVERY NIGHT NEEDED FOR SLEEP There is no refill protocol information for this order documented in this encounter Plan of Treatment Not on file documented as of this encounter Visit Diagnoses Diagnosis Primary insomnia- Primary Persistent disorder of initiating or maintaining sleep documented in this encounter Additional Health Concerns Assessment Noted Time PHQ-9 Depression Total Score: 0 11/04/19 21 4:00 PM CDT documented as of this encounter Care Teams Honing Machine Set Up Operator Tool Relationship Specialty Start Date End Date Alfredo Zacarias MD [address] [place] [id number] PCP - General Family Medicine 07/24/18 12/08/23 documented as of this encounter
--- OUTSIDE RECORDS SUMMARY | 2025-05-26 07:55 | XMS_ITS | Encounter Summary ---
Author Organization [facility] Address [address] 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 No / Unsure 12/04/2020 3:59 PM CDT documented as of this encounter Miscellaneous Notes * Telephone Encounter - Alfredo Zacarias MD - 12/18/2020 9:02 AM CDT Prescription pending signature * Telephone Encounter - Ursula Martinez RN - 12/18/2020 8:40 AM CDT Last Rx 11/02/20 Medication failed the protocol, provider to review and approve the medication order if appropriate. Requested Prescriptions Pending Prescriptions Disp Refills zolpidem (AMBIEN) 5 MG Tablet 30 Tablet Sig: Take 1 Tablet by mouth nightly as needed for Sleep. healthfinch Not Delegated - Psychiatry: Anxiolytics/Hypnotics Failed - 12/18/2020 8:39 AM Failed - This refill cannot be delegated Passed - Valid encounter within last 6 months Past Office Visits Recent Outpatient Visits 2 weeks ago Chronic midline low back pain without sciatica [facility] - Azul Hsu APN, WEB COORDINATOR 1 month ago Psychophysiological insomnia [facility] - Azul Hsu APN, WEB COORDINATOR 10 months ago Chronic midline low back pain without sciatica [facility] - Azul Hsu APN, WEB COORDINATOR 1 year ago Severe major depression (HCC) [facility] - Azul Hsu APN, WEB COORDINATOR 1 year ago Recent weight gain [facility] - [place] Mo YARD HOSTLER, WEB COORDINATOR Upcoming Appointments RUG WASHER - Recent and Past Visits Recent Visits Date Type Provider Dept 12/04/20 Office Visit Azul Mooney APN, CNP [facility] 11/03/20 Office Visit Azul Mooney APN, CNP [facility] 02/01/20 Office Visit Azul Mooney APN WEB COORDINATOR [facility] 09/21/19 [facility] Showing recent visits within past 460 days with a meds authorizing provider and meeting all other requirements Future Appointments No visits were found meeting these conditions. Showing future appointments within next 90 days with a meds authorizing provider and meeting all other requirements * Telephone Encounter - Medina Wells - 12/15/2020 7:45 AM CDT Received a faxed Rx request from pharmacy. Reordered refill medication(s) requested and pended for nurse and physician/RONALD review. Refill encounter routed to nurse [facility] [place] [facility] for processing. documented in this encounter Plan of Treatment Not on file documented as of this encounter Visit Diagnoses Not on filedocumented in this encounter Additional Health Concerns Assessment Noted Time PHQ-9 Depression Total Score: 0 11/04/19 21 4:00 PM CDT documented as of this encounter Care Teams Principal Associate Relationship Specialty Start Date End Date Alfredo Zacarias MD #[address] [address] PCP - General Family Medicine 07/24/18 12/08/23 documented as of this encounter
--- OUTSIDE RECORDS SUMMARY | 2025-05-26 07:55 | XMS_ITS | Encounter Summary ---
Author Organization [facility] Address [address] 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 Please call in * Telephone Encounter - Ursula Martinez RN - 01/11/2021 11:04 AM CDT [place] 12/05/20 Medication failed the protocol, provider to review and approve the medication order if appropriate. Requested Prescriptions Pending Prescriptions Disp Refills Pregabalin 300 MG Capsule [Pharmacy Med Name: PREGABALIN 300MG CAPSULES] 60 Capsule Sig: TAKE 1 CAPSULE BY MOUTH TWICE DAILY healthfinch Not Delegated - Neurology: Anticonvulsants - Controlled Substances Failed - 01/11/2021 11:04 AM Failed - This refill cannot be delegated Passed - Valid encounter within last 12 months Past Office Visits Recent Outpatient Visits 1 month ago Chronic midline low back pain without sciatica [facility] - Dodie Hsue, OVEREDGER, DIRECTOR LIFE INSURANCE 2 months ago Psychophysiological insomnia [facility] - [place] Mooney Azul, OVEREDGER, DIRECTOR LIFE INSURANCE 11 months ago Chronic midline low back pain without sciatica [facility] [place] Shirleyeck, Azul, OVEREDGER, DIRECTOR LIFE INSURANCE 1 year ago Severe major depression (HCC) [facility] [place] Strodhavaleck, Azul, OVEREDGER, DIRECTOR LIFE INSURANCE 1 year ago Recent weight gain [facility] [place]beck, Azul, OVEREDGER, DIRECTOR LIFE INSURANCE Upcoming Appointments CHIEF NURSING OFFICER - Recent and Past Visits Recent Visits Date Type Provider Dept 12/04/20 Office Visit StroAshley fieldanne, OVEREDGER, DIRECTOR LIFE INSURANCE [facility] 11/03/20 Office Visit Stro[place]beck Azul, OVEREDGER, DIRECTOR LIFE INSURANCE [facility] 02/01/20 Office Visit StroAshley fieldanne, OVEREDGER, DIRECTOR LIFE INSURANCE [facility] Showing recent visits within past 460 days with a meds authorizing provider and meeting all other requirements Future Appointments No visits were found meeting these conditions. Showing future appointments within next 90 days with a meds authorizing provider and meeting all other requirements * Telephone Encounter - Jane Quick MA - 01/10/2021 10:55 AM CDT Refill med management : Patient calling she is out of her Pregabalin 300 mg tabs . Patient is asking for an urgent refill today . Thank you documented in this encounter Plan of Treatment Not on file documented as of this encounter Visit Diagnoses Not on filedocumented in this encounter Additional Health Concerns Assessment Noted Time PHQ-9 Depression Total Score: 0 11/04/19 21 4:00 PM CDT documented as of this encounter Care Teams Lottery Manager Relationship Specialty Start Date End Date Alfredo Zacarias MD [address] [place] [id number] PCP - General Family Medicine 07/24/18 12/08/23 documented as of this encounter
--- OUTSIDE RECORDS SUMMARY | 2025-05-26 07:55 | XMS_ITS | Encounter Summary ---
Author Organization [facility] Address [address] 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 Requested Prescriptions Pending Prescriptions Disp Refills zolpidem (AMBIEN) 5 MG Tablet [Pharmacy Med Name: ZOLPIDEM 5MG TABLETS] 30 Tablet Sig: TAKE 1 TABLET BY MOUTH EVERY NIGHT NEEDED FOR SLEEP There is no refill protocol information for this order ibuprofen (MOTRIN) 800 MG Tablet [Pharmacy Med Name: IBUPROFEN 800MG TABLETS] 360 Tablet 2 Sig: TAKE 1 TABLET BY MOUTH EVERY 8 HOURS. healthfinch Analgesics: NSAIDS - OTC Passed - 02/14/2021 9:38 AM Passed - Valid encounter within last 12 months Past Office Visits Recent Outpatient Visits 2 months ago Chronic midline low back pain without sciatica [facility] - Azul Hsu APN, RUST PROOFER 3 months ago Psychophysiological insomnia [facility] - Azul Hsu APN, RUST PROOFER 1 year ago Chronic midline low back pain without sciatica [facility] [place] Mo APN, RUST PROOFER 1 year ago Severe major depression (HCC) [facility] [place] [place], RUST PROOFER 1 year ago Recent [facility] gain [facility] [place], RUST PROOFER Upcoming Appointments MATTRESS SPRING ENCASER - Recent and Past Visits Recent Visits Date Type Provider Dept 12/04/20 Office Visit Azul oMoney APN, RUST PROOFER [facility] 11/03/20 Office Visit Azul Mooney APN, CNP [facility] 02/01/20 Office Visit Azul Mooney APN, RUST PROOFER [facility] Showing recent visits within past 460 days with a meds authorizing provider and meeting all other requirements Future Appointments No visits were found meeting these conditions. Showing future appointments within next 90 days with a meds authorizing provider and meeting all other requirements documented in this encounter Plan of Treatment Not on file documented as of this encounter Visit Diagnoses Diagnosis Sciatica of left side Sciatica Chronic left-sided low back pain with left-sided sciatica documented in this encounter Additional Health Concerns Assessment Noted Time PHQ-9 Depression Total Score: 0 11/04/19 21 4:00 PM CDT documented as of this encounter Care Teams Social Insurance Analyst Relationship Specialty Start Date End Date Alfredo Zacarias MD #[address] [address] PCP - General Family Medicine 07/24/18 12/08/23 documented as of this encounter
--- OUTSIDE RECORDS SUMMARY | 2025-05-26 07:55 | XMS_ITS | Clinical Summary ---
Author Organization [facility] Address [address] [place] [address] Phone Care Team Providers Care Administrative Professional Name Role Phone Unavailable Primary Care Provider Unavailabl e Allergies No known active allergies Medications cyclobenzaprine (FLEXERIL) 5 MG Tablet Take 5 mg by mouth nightly. 9 Active losartan-hydrochl orothiazide (HYZAAR) 50-12.5 MG Tablet Take by mouth. 8 Active metoprolol Succinate (Toprol XL) 25 MG TABLET SR 24 HR Take by mouth. 8 Active albuterol (ProAir HFA) 108 (90 Base) MCG/ACT Aerosol SolutionIndicatio ns:Mild intermittent asthma without complication take 2 Puffs by inhalation every 4 hours as needed for Wheezing. 8.5 g 6 1 Active ibuprofen (MOTRIN) 800 MG TabletIndications :Sciatica of left side,Chronic left-sided low back pain with left-sided sciatica TAKE 1 TABLET BY MOUTH EVERY 8 HOURS. 360 Tablet 2 1 Active Pregabalin 300 MG CapsuleIndication s:Lumbar radiculopathy TAKE 1 CAPSULE BY MOUTH TWICE DAILY 60 Capsule 3 1 Active zolpidem (AMBIEN) 5 MG TabletIndications :Primary insomnia TAKE 1 TABLET BY MOUTH EVERY NIGHT NEEDED FOR SLEEP 30 Tablet 1 Active Active Problems Problem Noted Date Diagnosed Date Psychophysiological insomnia 02/01/2020 Cervicalgia 08/27/2018 Lumbar radiculopathy 08/27/2018 Numbness and tingling of left upper extremity Numbness and tingling of both feet 08/27/2018 Physical exam, annual (Adult) 08/17/2018 Anxiety 08/17/2018 Tobacco abuse 08/17/2018 Chronic midline low back pain without sciatica 1 09/27/2017 Immunizations Immunization Administration Dates Next Due Hepatitis B Immune Globulin 06/21/2014 Influenza Vaccine 05/08/2018 Influenza Vaccine, Quadrivalent, PF 04/26/2019 Family History Medical History Relation Name Comments Cancer Brother brain cancer Heart Attack Father Heart Disease Father Lung Cancer Father Parkinsonism Father No Known Problems Maternal Grandfather No Known Problems Maternal Grandmother No Known Problems Mother Lung Cancer Paternal Grandfather Heart Attack Paternal Grandmother Heart Disease Paternal Grandmother Cancer Sister sarcoma Relation Name Status Comments Brother Father Maternal Grandfather Maternal Grandmother Mother Paternal Grandfather Paternal Grandmother Sister Social History Tobacco Use Types Packs/Day Years Used Date Smoking Tobacco: Former Cigarettes Smokeless Tobacco: Never Tobacco Cessation:Counseling Given: No Alcohol Use Standard Drinks/Week Comments Yes 0 (1 standard drink = 0.6 oz pur e alcohol) rarely PHQ-2 Answer Date Recorded Total Score - Questions 1-9 0 10/10 Sexually Active Control Partners Comments Yes Comments No Sex and Gender Information Value Date Recorded Sex Assigned at Not on file 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 Gender Identity Not on file Sexual Orientation Not on file Last Filed Vital Signs Vital Sign Reading Time Taken Comments Blood Pressure 118/72 12/04/2020 4:16 PM CDT Pulse 80 12/04/2020 4:16 PM CDT Temperature 36.3 C (97.4 F) 12/04/2020 4:16 PM CDT Respiratory Rate 16 12/04/2020 4:16 PM CDT Oxygen Saturation 98% 12/04/2020 4:16 PM CDT Inhaled Oxygen Concentration - - Weight 76.7 kg (169 lb) 12/04/2020 4:16 PM CDT Height 162.6 cm (5' 4) 12/04/2020 4:16 PM CDT Body Mass Index 29.01 12/04/2020 4:16 PM CDT Plan of Treatment Health Maintenance Due Date Last Done Comments Hepatitis C Virus (HCV) Screening 1965 TdaP Immunization 1965 Hepatitis B Immunization (1 of 3 - 19+ 3-dose series) 1984 Cologuard 2010 Colonoscopy 2010 Colorectal Cancer Screening 2010 Immunochemical Fecal Occult Blood 2010 Pneumococcal Immunization (5 0+ years) (1 of 1 - PCV) 10/23/2015 Zoster Immunization (1 of 2) 10/23/2015 Mammogram 09/02/2019 09/02/2018 Influenza Immunization (#1) 04/11/202504/11, 05/08/2018 SARS-COV-2 Immunization ( - season) 2025 Respiratory Syncytial Virus (RSV) Immunization (Adult) (1 - 1-dose 75+ series) 2040 Human Papillomavirus (HPV) Immunization Aged Out No longer eligible b ased on patient's age to complete this topic Meningococcal Immunization (ACWY) Aged Out No longer eligible b ased on patient's age to complete this topic Rotavirus Immunization Aged Out No lo nger eligible based on patient's age to complete this topic Procedures Procedure Name Priority Date/Time Associated Diagnosis Comments SHIVA SCREENING BILATERAL DIGITAL W CAD W DEAN Routine 09/02/2018 1:38 PM MACHINIST MECHANIC Chronic left-sided low back pain with left-sided sciatica Encounter for mammogram to establish baseline mammogram from Last 3 Months or Most Recently Relevant to Health Maintenance Results * SHIVA SCREENING BILATERAL DIGITAL W CAD W DEAN (09/02/2018 1:38 PM MACHINIST MECHANIC) Anatomical Region Laterality Modality breast Bilateral Mammography 09/02/2018 12:5 5 PM MACHINIST MECHANIC Narrative 09/05/2018 8:14 AM MACHINIST MECHANIC - SHIVA SCREENING BILATERAL DIGITAL W CAD W DEAN BILATERAL DIGITAL SCREENING MAMMOGRAM 3D/2D WITH CAD WITH MEDIOLATERAL OBLIQUE CRANIOCAUDAL: 09/02/2018 The study was acquired using digital technology and interpreted from soft copy. Current study was also evaluated with ICAD version 7.2. CLINICAL: Routine screening. Patient has no complaints. No personal history of cancer. No family history of breast cancer. COMPARISONS: Comparison is made to exams dated: 10/10/2016, 09/26/2016, and 04/27/2014 [facility]. BREAST TISSUE:The tissue of both breasts is heterogeneously dense. This may lower the sensitivity of mammography. FINDINGS: No significant masses, calcifications, or other findings are seen in either breast. There has been no significant interval change. IMPRESSION: BI-RAD 1 NEGATIVE There is no mammographic evidence of malignancy. A 1 year screening mammogram is recommended. The patient has been or will be contacted. The patient will be entered into a reminder system with a target due date of 1 year for her next screening exam. Electronically signed by: Young Waggoner M.D. /penrad:09/04/2018 15:11:37 Vice President [employer] Market Insights: Luz Thrasher (R)), [facility]: Normal Exam Reading location: [facility] BI-RADS: 1 Negative Procedure Note Young Waggoner MD - 09/05/2018 - SHIVA SCREENING BILATERAL DIGITAL W CAD W DEAN BILATERAL DIGITAL SCREENING MAMMOGRAM 3D/2D WITH CAD WITH MEDIOLATERAL OBLIQUE CRANIOCAUDAL: 09/02/2018 The study was acquired using digital technology and interpreted from soft copy. Current study was also evaluated with ICAD version 7.2. CLINICAL: Routine screening. Patient has no complaints. No personal history of cancer. No family history of breast cancer. COMPARISONS: Comparison is made to exams dated: 10/10/2016, 09/26/2016, and 04/27/2014 [facility]. BREAST TISSUE:The tissue of both breasts is heterogeneously dense. This may lower the sensitivity of mammography. FINDINGS: No significant masses, calcifications, or other findings are seen in either breast. There has been no significant interval change. IMPRESSION: BI-RAD 1 NEGATIVE There is no mammographic evidence of malignancy. A 1 year screening mammogram is recommended. The patient has been or will be contacted. The patient will be entered into a reminder system with a target due date of 1 year for her next screening exam. Electronically signed by: Young Waggoner M.D. /penrad:09/04/2018 15:11:37 Vice President [employer]ights: Luz Thrasher (R)), [facility] letter sent: Normal Exam Reading location: [place] BI-RADS: 1 Negative us Azul Mooney TAX EXPERT, ASSEMBLY LINE WORKER IMG MAMMO ORDERABL ES Final Result from Last 3 Months or Most Recently Relevant to Health Maintenance [place] [address] [place]
--- OUTSIDE RECORDS SUMMARY | 2025-05-26 07:56 | XMS_ITS | Encounter Summary ---
Author Organization [facility] Address [address] [place] [address] Phone Care Team Providers Care Ferryboat Deckhand Name Role Phone Alfredo Zacarias MD Primary Care Provider [phone] Reason for Visit * Reason Comments Medication Refill Encounter Details Date Type Department Care Team (Late st Contact Info) Description 06/15/2020 Refill [facility] [address]2 [place] [phone] Alfredo Zacarias MD [address] [address] Medication Refill Social History Tobacco Use Types Packs/Day Years Used Date Smoking Tobacco: Former Cigarettes Smokeless Tobacco: Never Alcohol Use Standard Drinks/Week Comments Yes 0 (1 standard drink = 0.6 oz pur e alcohol) rarely PHQ-2 Answer Date Recorded Total Score - Questions 1-9 0 01/10 Sexually Active Control Partners Comments Yes Comments No Sex and Gender Information Value Date Recorded Sex Assigned at Not on file Legal Sex Female 3:57 AM RN FAMILY Gender Identity Not on file Sexual Orientation Not on file documented as of this encounter Miscellaneous Notes * Telephone Encounter - Alfredo Zacarias MD - 06/16/2020 2:52 PM CST Prescription approved. Please call in FAMILY * Telephone Encounter - Christal Morrow RN - 06/16/2020 12:07 PM CST Medication failed the protocol, provider to review and approve the medication order if appropriate. Last OV 02/01/20, F/U None, UDS 02/01/20 Compliant, Earliest fill date 06/07/20 Christal PIÑA Requested Prescriptions Pending Prescriptions Disp Refills methocarbamol (ROBAXIN) 750 MG Tablet [Pharmacy Med Name: METHOCARBAMOL 750MG TABLETS] 120 Tab 1 Sig: TAKE 1 TABLET BY MOUTH FOUR TIMES DAILY. Not Delegated - Analgesics: Muscle Relaxants Failed - 06/15/2020 3:43 PM Failed - This refill cannot be delegated Passed - Valid encounter within last 6 months Past Office Visits Recent Outpatient Visits 4 months ago Chronic midline low back pain without sciatica [facility] APN, MACHINE MAINTENANCE SUPERVISOR 8 months ago Severe major depression (HCC) [facility], ORDER EXPEDITER, MACHINE MAINTENANCE SUPERVISOR 9 months ago Recent weight gain [facility] [place] [place] ORDER EXPEDITER, MACHINE MAINTENANCE SUPERVISOR 1 year ago Chronic midline low back pain without sciatica [facility] ORDER EXPEDITER, MACHINE MAINTENANCE SUPERVISOR 1 year ago Physical exam, annual (Adult) [facility] Pickering MD Upcoming Appointments DIRECTOR OF QUANTITATIVE RESEARCH - Recent and Past Visits Recent Visits Date Type Provider Dept 02/01/20 Office Visit Azul Mooney APN, MACHINE MAINTENANCE SUPERVISOR [facility] 09/21/19 Office Visit Azul Mooney APN, MACHINE MAINTENANCE SUPERVISOR [facility] 09/14/19 Office Visit Azul Mooney APN, MACHINE MAINTENANCE SUPERVISOR [facility] 04/26/19 Office Visit Azul Mooney APN, MACHINE MAINTENANCE SUPERVISOR [facility] Showing recent visits within past 460 days with a meds authorizing provider and meeting all other requirements Future Appointments No visits were found meeting these conditions. Showing future appointments within next 90 days with a meds authorizing provider and meeting all other requirements Pregabalin 300 MG Capsule [Pharmacy Med Name: PREGABALIN 300MG CAPSULES] 60 Cap Sig: TAKE ONE CAPSULE BY MOUTH TWICE DAILY Not Delegated - Neurology: Anticonvulsants - Controlled Substances Failed - 06/15/2020 3:43 PM Failed - This refill cannot be delegated Passed - Valid encounter within last 12 months Past Office Visits Recent Outpatient Visits 4 months ago Chronic midline low back pain without sciatica [facility] [place] [place] APN, MACHINE MAINTENANCE SUPERVISOR 8 months ago Severe major depression (HCC) [facility] [place] [place], ORDER EXPEDITER, MACHINE MAINTENANCE SUPERVISOR 9 months ago Recent weight gain [facility] [place] ORDER EXPEDITER, MACHINE MAINTENANCE SUPERVISOR 1 year ago Chronic midline low back pain without sciatica [facility] [place] [place] ORDER EXPEDITER, MACHINE MAINTENANCE SUPERVISOR 1 year ago Physical exam, annual (Adult) [facility] MD Upcoming Appointments DIRECTOR OF QUANTITATIVE RESEARCH - Recent and Past Visits Recent Visits Date Type Provider Dept 02/01/20 Office Visit Azul Mooney APN, MACHINE MAINTENANCE SUPERVISOR [facility] 09/21/19 Office Visit Azul Mooney APN, MACHINE MAINTENANCE SUPERVISOR [facility] 09/14/19 Office Visit Azul Mooney APN, MACHINE MAINTENANCE SUPERVISOR [facility] 04/26/19 Office Visit Azul Mooney ORDER EXPEDITER, MACHINE MAINTENANCE SUPERVISOR [facility] Showing recent visits within past 460 days with a meds authorizing provider and meeting all other requirements Future Appointments No visits were found meeting these conditions. Showing future appointments within next 90 days with a meds authorizing provider and meeting all other requirements FAMILY documented in this encounter Plan of Treatment Not on file documented as of this encounter Visit Diagnoses Not on filedocumented in this encounter Additional Health Concerns Infection Onset Date Last Indicated Resolved Time COVID - 19 10/26/2020 10/26/2020 11/15/2020 12:1 8 AM CDT Assessment Noted Time PHQ-9 Depression Total Score: 0 02/01/20 20 8:04 AM CDT documented as of this encounter Care Teams Ferryboat Deckhand Relationship Specialty Start Date End Date Alfredo Zacarias MD [address] [place] [address] PCP - General Family Medicine 07/24/18 12/08/23 documented as of this encounter
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
--- OUTSIDE RECORDS SUMMARY | 2025-05-26 08:48 | XMS_ITS | Encounter Summary ---
Author Organization [facility] Address [address] [place] [address] Phone Care Team Providers Care Dairy Worker Name Role Phone Alfredo Zacarias MD Primary Care Provider [phone] Reason for Visit * Reason Comments Medication Refill Encounter Details Date Type Department Care Team (Late st Contact Info) Description 06/15/2020 Refill [facility] [address]2 [place] [phone] Alfredo Zacarias MD #[address] [address] Medication Refill Social History Tobacco Use Types [...] on file Legal Sex Female 3:57 AM DRILL OPERATOR Gender Identity Not on file Sexual Orientation Not on file documented as of this encounter Miscellaneous Notes * Telephone Encounter - Alfredo Zacarias MD - 06/16/2020 2:52 PM CST Prescription approved. Please call in L OPERATOR * Telephone Encounter - Christal Morrow RN [...] Chronic midline low back pain without sciatica [facility] APN, ACID PAINTER 8 months ago Severe major depression (HCC) [facility], OPERATIONS RESEARCH MANAGER, ACID PAINTER 9 months ago [facility] OPERATIONS RESEARCH MANAGER, ACID PAINTER 1 year ago Chronic midline low back pain without sciatica [facility] [place] [place] OPERATIONS RESEARCH MANAGER, ACID PAINTER 1 year ago Physical exam, annual (Adult) [facility] Pickering MD Upcoming Appointments LORRY WEIGHER - Recent and Past Visits Recent Visits Date Type Provider Dept 02/01/20 Office Visit Azul Mooney APN, ACID PAINTER [facility] 09/21/19 Office Visit Azul Mooney APN, ACID PAINTER [facility] 09/14/19 Office Visit Azul Mooney APN, ACID PAINTER [facility] 04/26/19 Office Visit Azul Mooney APN, ACID PAINTER [facility] Showing recent visits within past 460 days [...] Chronic midline low back pain without sciatica [facility], ACID PAINTER 8 months ago Severe major depression (HCC) [facility], OPERATIONS RESEARCH MANAGER, ACID PAINTER 9 months ago Recent weight [facility] OPERATIONS RESEARCH MANAGER, ACID PAINTER 1 year ago Chronic midline low back pain without sciatica [facility] OPERATIONS RESEARCH MANAGER, ACID PAINTER 1 year ago Physical exam, annual (Adult) [facility] MD Upcoming Appointments LORRY WEIGHER - Recent and Past Visits Recent Visits Date Type Provider Dept 02/01/20 Office Visit Azul Mooney APN, ACID PAINTER [facility] 09/21/19 Office Visit Azul Mooney APN, ACID PAINTER [facility] 09/14/19 Office Visit Azul Mooney APN, ACID PAINTER [facility] 04/26/19 Office Visit Azul Mooney OPERATIONS RESEARCH MANAGER, ACID PAINTER [facility] Showing recent visits within past 460 days with a meds authorizing provider and meeting all other requirements Future Appointments No visits were found meeting these conditions. Showing future appointments within next 90 days with a meds authorizing provider and meeting all other requirements L OPERATOR documented in this encounter Plan of Treatment Not on file documented as of this encounter Visit Diagnoses Not on filedocumented in this encounter Additional Health Concerns Infection Onset Date Last Indicated Resolved Time COVID - 19 10/26/2020 10/26/2020 11/15/2020 12:1 8 AM CDT Assessment Noted Time PHQ-9 Depression Total Score: 0 02/01/20 20 8:04 AM CDT documented as of this encounter Care Teams Dairy Worker Relationship Specialty Start Date End Date Alfredo Zacarias MD [address] [place] [address] PCP - General Family Medicine 07/24/18 12/08/23 documented as of this encounter
--- OUTSIDE RECORDS SUMMARY | 2025-05-26 08:48 | XMS_ITS | Encounter Summary ---
Author Organization [facility] Address [address] [place] [address] Phone Care Team Providers Care Street Flusher Driver Name Role Phone Alfredo Zacarias MD Primary Care Provider [phone] Reason for Visit * Reason Onset Date Comments Medication Refill 12/15/2020 Encounter Details Date Type Department Care Team (Late st Contact Info) Description 12/15/2020 Refill [facility] [address] [place] [address] Alfredo Zacarias MD [address] [address] Medication Refill Social History Tobacco Use Types [...] on file Legal Sex Female 3:57 AM MANAGER OF SECURITY Gender Identity Not on file Sexual Orientation [...] Chronic midline low back pain without sciatica [facility] APN, RAKER BUFFING WHEEL 1 month ago Psychophysiological insomnia [facility] APN, RAKER BUFFING WHEEL 10 months ago Chronic midline low back pain without sciatica [facility] APN, RAKER BUFFING WHEEL 1 year ago Severe major depression (HCC) [facility] APN, RAKER BUFFING WHEEL 1 year ago Recent weight gain [facility] SANTA'S HELPER, RAKER BUFFING WHEEL Upcoming Appointments CIGAR MAKING MACHINE SUPERVISOR - Recent and Past Visits Recent Visits Date Type Provider Dept 12/04/20 Office Visit Azul Mooney APN, CNP [facility] 11/03/20 Office Visit Azul Mooney APN, CNP [facility] 02/01/20 Office Visit Azul Mooney APN RAKER BUFFING WHEEL [facility] 09/21/19 [facility] Show[facility] recent visits within past 460 [...] physician/RONALD review. Refill encounter routed to nurse [employer] for processing. documented in this encounter Plan of Treatment Not on file documented as of this encounter Visit Diagnoses Not on filedocumented in this encounter Additional Health Concerns Assessment Noted Time PHQ-9 Depression Total Score: 0 11/04/19 21 4:00 PM CDT documented as of this encounter Care Teams Street Flusher Driver Relationship Specialty Start Date End Date Alfredo Zacarias MD #[address] [address] PCP - General Family Medicine 07/24/18 12/08/23 documented as of this encounter
--- OUTSIDE RECORDS SUMMARY | 2025-05-26 08:48 | XMS_ITS | Encounter Summary ---
Author Organization [facility] Address [address] [place] [address] Phone Care Team Providers Care Paper Steamer Name Role Phone Alfredo Zacarias MD Primary Care Provider [phone] Reason for Visit * Reason Comments Medication Refill Encounter Details Date Type Department Care Team (Late st Contact Info) Description 02/12/2021 Refill [facility] #2 [place] [phone] Alfredo Zacarias MD #[address] [address] Medication Refill Social History Tobacco Use Types [...] on file Legal Sex Female 3:57 AM HOUSEHOLD COOK Gender Identity Not on file Sexual Orientation [...] Chronic midline low back pain without sciatica [facility] Azul Hsu APN, REVERSER 3 months ago Psychophysiological insomnia [facility] APN, REVERSER 1 year ago Chronic midline low back pain without sciatica [facility] [place] APN, REVERSER 1 year ago Severe major depression (HCC) [facility] [place] APN, REVERSER 1 year ago [facility], REVERSER Upcoming Appointments HOUSEHOLD ASSISTANT - Recent and Past Visits Recent Visits Date Type Provider Dept 12/04/20 Office Visit Azul Mooney APN, REVERSER [facility] 11/03/20 Office Visit Azul Mooney APN, CNP [facility] 02/01/20 Office Visit Azul Mooney APN, REVERSER [facility] [place] [place] Showing recent visits within past 460 days [...] documented as of this encounter Care Teams Paper Steamer Relationship Specialty Start Date End Date Alfredo Zacarias MD #[address] [address] PCP - General Family Medicine 07/24/18 12/08/23 documented as of this encounter
--- OUTSIDE RECORDS SUMMARY | 2025-05-26 08:48 | XMS_ITS | Clinical Summary ---
Author Organization [facility] Address [address] [place] [address] Phone Care Team Providers Care Manager Union Name Role Phone Unavailable Primary Care Provider [...] on file Legal Sex Female 3:57 AM SUPERVISOR DENTAL LABORATORY Gender Identity Not on file Sexual Orientation [...] CAD W DEAN Routine 09/02/2018 1:38 PM SUPERVISOR DENTAL LABORATORY Chronic left-sided low back pain with left-sided sciatica Encounter for mammogram to establish baseline mammogram from Last 3 Months or Most Recently Relevant to Health Maintenance Results * SHIVA SCREENING BILATERAL DIGITAL W CAD W DEAN (09/02/2018 1:38 PM SUPERVISOR DENTAL LABORATORY) Anatomical Region Laterality Modality breast Bilateral Mammography 09/02/2018 12:5 5 PM SUPERVISOR DENTAL LABORATORY Narrative 09/05/2018 8:14 AM SUPERVISOR DENTAL LABORATORY - SHIVA SCREENING BILATERAL DIGITAL W CAD [...] to exams dated: 10/10/2016, 09/26/2016, and 04/27/2014 [facility]. BREAST TISSUE:The tissue of both breasts is [...] signed by: Young Waggoner M.D. /penrad:09/04/2018 15:11:37 Net Maker: Luz Thrasher (R)), [facility]: Normal Exam Reading location: [facility] BI-RADS: 1 Negative Procedure Note Young Waggoner [...] to exams dated: 10/10/2016, 09/26/2016, and 04/27/2014 [facility]. BREAST TISSUE:The tissue of both breasts is [...] signed by: Young Waggoner M.D. /penrad:09/04/2018 15:11:37 Net Maker: Luz Thrasher (R)), [facility] letter sent: Normal Exam Reading location: [facility] BI-RADS: 1 Negative us Azul Mooney CARPENTER ROUGH, AUDIOVISUAL EQUIPMENT OPERATOR IMG MAMMO ORDERABL ES Final Result from Last 3 Months or Most Recently Relevant to Health Maintenance [place] [address] [place]ICAID [place]
--- OUTSIDE RECORDS SUMMARY | 2025-05-26 08:48 | XMS_ITS | Encounter Summary ---
Author Organization [facility] Address [address] [place] [address] Phone Care Team Providers Care Wrecker Driver Name Role Phone Alfredo Zacarias MD Primary Care Provider [phone] Reason for Visit * Reason Comments Medication Refill Encounter Details Date Type Department Care Team (Late st Contact Info) Description 07/17/2021 Refill [facility] #2 [place] [address] Alfredo Zacarias MD [address] [address] Medication Refill Social History Tobacco Use Types [...] on file Legal Sex Female 3:57 AM BREAKDOWN MAN Gender Identity Not on file Sexual Orientation Not on file documented as of this encounter Miscellaneous Notes * Telephone Encounter - Radha Esquivel RMA - 07/18/2021 11:24 AM BREAKDOWN MAN Pt no longer comes here. KDOWN MAN * Telephone Encounter - Ursula Martinez RN - 07/18/2021 7:46 AM CST Patient needs an appointment with PCP KDOWN MAN * Telephone Encounter - Ursula Martinez RN [...] 90 days and meeting all other requirements KDOWN MAN documented in this encounter Plan of Treatment Not on file documented as of this encounter Visit Diagnoses Diagnosis Lumbar radiculopathy Thoracic or lumbosacral neuritis or radiculitis, unspecified documented in this encounter Additional Health Concerns Assessment Noted Time PHQ-9 Depression Total Score: 0 11/04/19 21 4:00 PM CDT documented as of this encounter Care Teams Wrecker Driver Relationship Specialty Start Date End Date Alfredo Zacarias MD #[address] [address] PCP - General Family Medicine 07/24/18 12/08/23 documented as of this encounter
--- OUTSIDE RECORDS SUMMARY | 2025-05-26 08:48 | XMS_ITS | Encounter Summary ---
Author Organization [facility] Address [address] 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
--- OUTSIDE RECORDS SUMMARY | 2025-05-26 08:48 | XMS_ITS | Encounter Summary ---
Author Organization [facility] Address [address] [place] [address] Phone Care Team Providers Care Resident Care Director Name Role Phone Alfredo Zacarias MD Primary Care Provider [phone] Reason for Visit * Reason Comments Medication Refill Encounter Details Date Type Department Care Team (Late st Contact Info) Description 03/18/2021 Refill [facility] #2 [place] [phone] Alfredo Zacarias MD [address] [address] Medication Refill Social History Tobacco Use Types [...] on file Legal Sex Female 3:57 AM SENIOR APPLICATION SECURITY CONSULTANT Gender Identity Not on file Sexual [...] Chronic midline low back pain without sciatica [facility], AFTERNOON BABYSITTER, TRAINING PERSONNEL SUPERVISOR 4 months ago Psychophysiological insomnia [facility], AFTERNOON BABYSITTER, TRAINING PERSONNEL SUPERVISOR 1 year ago Chronic midline low back pain without sciatica [facility] [place] Mo[facility], Azul, AFTERNOON BABYSITTER, TRAINING PERSONNEL SUPERVISOR 1 year ago Severe major depression (HCC) [facility] [place] Azul, AFTERNOON BABYSITTER, TRAINING PERSONNEL SUPERVISOR 1 year ago Recent weight gain [facility] [place] Ferneck, Azul, AFTERNOON BABYSITTER, TRAINING PERSONNEL SUPERVISOR Upcoming Appointments ROCKET PROPELLANT PLANT SUPERVISOR - Recent and Past Visits Recent Visits Date Type Provider Dept 12/04/20 Office Visit Dodie Mooneye AFTERNOON BABYSITTER, TRAINING PERSONNEL SUPERVISOR [facility] 11/03/20 Office Visit Ashley Mooneyanne AFTERNOON BABYSITTER, TRAINING PERSONNEL SUPERVISOR [facility] 02/01/20 Office Visit StroAshley fieldanne, AFTERNOON BABYSITTER, TRAINING PERSONNEL SUPERVISOR [facility] Showing recent visits within past [...] documented as of this encounter Care Teams Resident Care Director Relationship Specialty Start Date End Date Alfredo Zacarias MD [address] [place] [address] PCP - General Family Medicine 07/24/18 12/08/23 documented as of this encounter
--- OUTSIDE RECORDS SUMMARY | 2025-05-26 08:48 | XMS_ITS | Clinical Summary ---
Author Organization [facility] Address [address] [place] [place] [address] Care Team Providers Care Travel Med Surg Rn Name Role Phone Helene Tse Primary Care Provider Karissa Jackson MD Unavailable Source Comments [facility],non-owned Affiliates and Associated Physician Practices is amultiple site organization consisting of ambulatory clinics and hospital sitesin [place], [place], [place] and [place]. This disclosure is being madepursuant to the Care Everywhere program and may not contain all information available regarding this patient. Last updated 18.[facility] Allergies No known active allergies Medications * [...] Refill [facility] [address] [place] [phone] Bert Chow MD Refill Request 04/21/2025 Telephone [facility] - Rheumatology [address] [place] [address] Karissa Jackson MD Record Request 03/25/2025 Telephone [facility] - Rheumatology [address] [place] [address] Karissa Jackson MD Record Request 03/21/2025 Refill [facility] [address] [place] [phone] Bert Chow MD Refill Request from Last [...] on file 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 Interventions: Medical Devices Implanted Type Area Test Eng Device Identifier Shelf Expiration Date Model / Serial / Lot Screw 6.5mm 40mm Spne Ma Nydia Xtd Tab Implanted:Qty: 4 on 02/05/2019 by Denzel Roldan MD at [facility] N/A: Spine Lumbar Medtronic Sofamor Danek [employer] [id number] / / Screw Set Ti 4.75mm Spne Perc Solera Implanted:Qty: 4 on 02/05/2019 by Denzel Roldan MD at [facility] N/A: Spine Lumbar Medtronic Sofamor [employer]anek [employer] [id number] / / Graft Tissue Drgn + Bvn Clgn Mtrx 2x2in Implanted:Qty: 1 on 02/05/2019 by Denzel Roldan MD at [facility] N/A: Spine Lumbar Integra Neurosciences 09/10/2021 [id number] / / Slnt Dura Duraseal Pg Trilysine Amine 5 Implanted:Qty: 1 on 02/05/2019 by Denzel Roldan MD at [facility] N/A: Spine Lumbar Integra Lifesciences Naun 03/10/2020 [id number] / / [id number] Graft Bone Grftn Dbm 5cc Ptty Jr - [id number] Implanted:Qty: 1 on 02/05/2019 by Denzel Roldan MD at [facility] N/A: Spine Lumbar Osteotech Inc 06/30/2021 [id number] / [id number] / Expandable Interbody Device, Extra Lordotic Implanted:Qty: 1 on 02/05/2019 by Denzel Roldan MD at [facility] N/A: Spine Lumbar Medtronic Sofamor Danek Inc 11/17/2025 [id number] / / [id number] Marciano Spin Perc Moly 4.75mm X 30mm Implanted:Qty: 1 on 02/05/2019 by Denzel Roldan MD at [facility] N/A: Spine Lumbar Medtronic Sofamor Danek [employer] [id number] / / Voyager Percutaneous Marciano Implanted:Qty: 1 on 02/05/2019 by Denzel Roldan MD at [facility] N/A: Spine Lumbar Medtronic Sofamor Danek [employer] [id number] / / Explanted Type Area Test Eng Device Identifier Shelf Expiration Date Model / Serial / Lot Gw Orth 24in Thrd Ucss Explanted:Qty: 10 on 02/05/2019 at [facility] N/A: Spine Lumbar Medtronic Sofamor Danek Inc [id number] / / Procedures Procedure Name Priority Date/Time Associated Diagnosis Comments BASIC METABOLIC PANEL (CALCIUM TOTAL) AM Draw 02/10/2019 1:06 PM CDT from Last 3 Months or Most Recently Relevant to Health Maintenance Results * (ABNORMAL) BASIC METABOLIC PANEL (CALCIUM TOTAL) (02/10/2019 1:06 PM CDT) BUN 11 7 - 26 mg/dL 02/10/2019 2:08 PM CDT [facility] Creatinine 0.7 0.6 - 1.2 mg/dL 02/10/2019 2:08 PM CDT [facility] Sodium 139 136 - 145 [...] CDT 02/10/2019 1:25 PM CDT Juana Nevarez CLARIFIER-NET TRAINER LAB - CHEMISTRY ORDERABLES F inal Result Performing Organization Address City/State/[facility] Co de Phone Number [facility] [address] [phone] from Last 3 Months or Most Recently Relevant to Health Maintenance Insurance [facility] Advance Directives * Full Code (Latest Code Status on File) Date Activated Date Inactivated Comments 02/05/2019 3:41 PM 02/12/2019 2:48 PM Care Teams Travel Med Surg Rn Relationship Specialty [place] [address] [address] [facility] [address] [place], [phone] PCP - General Physician Eye Technician 12/08/24 [place] [address] [place], [phone] Rheumatology 12/08/24
--- OUTSIDE RECORDS SUMMARY | 2025-05-26 08:48 | XMS_ITS | Encounter Summary ---
Author Organization [facility] Address [address] 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 Gender Identity Not on file Sexual [...] Chronic midline low back pain without sciatica [facility] Dodie Hsue, DEPUTY SHERIFF [employer] SERVICES, STATISTICAL TYPIST 2 months ago Psychophysiological insomnia [facility] [place] Mooney Azul, DEPUTY SHERIFF [address] SERVICES, STATISTICAL TYPIST 11 months ago Chronic midline low back pain without sciatica [facility] [place] Shirleyeck, Azul, DEPUTY SHERIFF [address] SERVICES, STATISTICAL TYPIST 1 year ago Severe major depression (HCC) [facility] [place] Strodhav[place], Azul, DEPUTY SHERIFF [address] SERVICES, STATISTICAL TYPIST 1 year ago Recent weight gain [facility] [place] Strohbeck, Azul, DEPUTY SHERIFF [address] SERVICES, STATISTICAL TYPIST Upcoming Appointments ORTHOPEDIC PODIATRIST - Recent and Past Visits Recent Visits Date Type Provider Dept 12/04/20 Office Visit StroAshley fieldanne, DEPUTY SHERIFF [address] SERVICES, STATISTICAL TYPIST [facility] 11/03/20 Office Visit Strohbeck Azul, DEPUTY SHERIFF [address] SERVICES, STATISTICAL TYPIST [facility] [place] 02/01/20 Office Visit Stro[facility]ley fieldanne, DEPUTY SHER[address] SERVICES, STATISTICAL TYPIST [facility] [place] Showing recent visits within past [...] documented as of this encounter Care Teams Imaging Engineer Relationship Specialty Start Date End Date Alfredo Zacarias MD [address] [place] [phone] PCP - General Family Medicine 07/24/18 12/08/23 documented as of this encounter
[2025-05-26 10:04] VITALS: BP 133/85; PULSE 67; RESP 16; O2SAT 97
[2025-05-26] MEDS: KETOROLAC 30 MG/ML VIAL (*BKC) IM (10:06)
[2025-05-26] MEDS: LIDOCAINE 5% PATCH 1 PATCH TRANSDERM (10:07)
--- NOTE | 2025-05-26 10:13 | ED.UPPEXIN ---
HPI - Extremity Injury (Upper) General Chief Complaint: Extremity Injury, Upper Stated Complaint: L shoulder injury Time Seen by Provider: 05/26/25 08:16 Source: patient Mode of arrival: ambulatory Limitations: no limitations History of Present Illness HPI narrative: This is a 59-year-old female who denies significant past medical history, presenting to the emergency department complaining of dull and cramping left shoulder pain rated moderate for the past day. 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 She developed shoulder pain yesterday and states she has difficulty over the shoulder due to pain. She denies any other injury and has no other complaints at this time. Related Data Home Medications ?Medication ?Instructions ?Recorded ?Confirmed ?Last Taken ?Type cinnamon bark 500 mg capsule 500 mg PO DAILY 03/15/22 03/29/22 03/28/22 History mecobalamin (vitamin B12) 1,000 1,000 mcg PO DAILY PRN other 03/15/22 03/29/22 03/28/22 History mcg chewable tablet multivitamin (Multiple Vitamins 1 tablet PO DAILY 03/15/22 03/29/22 03/28/22 History tablet) b.[id number]-[id number]-ktd-ctsz-dammc 1 ea PO DAILY 03/20/22 03/29/22 03/28/22 History 20-250-50 mg(d)/20-200-10 mg(n) tablets (Black Cohosh Menopause Complex) fluticasone propionate 50 2 spray intranasal DAILY PRN 03/20/22 03/29/22 03/28/22 History mcg/actuation nasal Allergy Symptoms spray,suspension (Flonase Allergy Relief) Allergies Allergy/AdvReac Type Severity Reaction Status Date / Time No Known Allergies Allergy Verified 05/26/25 08:00 Review of Systems Review of Systems: All systems reviewed & are unremarkable except as noted in HPI and below PMFSH Past Medical History Medical History Hyperlipidemia Back pain with history of spinal surgery Insomnia Depression with anxiety Arthritis Anxiety Surgical History Surgical History Hx of lumbosacral spine surgery Family History Family History Father Cerebrovascular accident Family history of Parkinson's disease Malignant neoplasm of prostate Family history of coronary artery disease Grandparent Family history of lung cancer Family history of coronary artery disease Sibling Family history of malignant neoplasm of uterus Family history of malignant neoplasm of brain Patient's brother is Social History Social History Social History: Caffeine-1 cup daily Smoking status: Current every day smoker Tobacco type: e-cigarettes/vaping Additional smoking assessment comments: vape has nicotine Alcohol intake: never Substance use type: does not use Living arrangements: with family Spiritual care concerns: No Exam Narrative: GENERAL: Well-developed, well-nourished, and in no acute distress. HEAD: Normocephalic, atraumatic. EYES: PERRLA and EOMI. NECK: Supple. No midline spine tenderness to palpation, no step-off or crepitus. The left trapezius appears spasm compared to the right CHEST: Clear to auscultation. No respiratory distress. No wheezes rales or rhonchi HEART: Regular rate and rhythm. No murmur heard. Normal peripheral pulses. EXTREMITIES: Passive range of motion of the left arm limited to 90? an anterior flexion abduction due to pain with out crepitus or deformity. No point tenderness to palpation No edema. SKIN: Warm, dry, no rash. NEURO: Alert and oriented x3. No focal deficit. Moving all 4 limbs spontaneously. Some paresthesias on palpation over the left hand compared to the right. PSYCH: Normal mood and affect. Course Course Emergency Course: 10:16 - X-ray of the shoulder not concerning for fracture or dislocation. There is some subluxation inferiorly thought to be due to joint effusion. I suspect the patient's pain is related to rotator cuff injury. Will discharge with muscle relaxers, pain medications gentle exercise and recommendation for primary care follow-up. I discussed the findings and recommendations with the patient. Discussed return and emergency precautions including signs/symptoms of septic arthritis and neurovascular compromise. The patient voiced understanding and agreement with the plan. All questions answered to her satisfaction. Vital Signs Vital signs: Vital Signs Temperature 97.6 F 05/26/25 07:53 Pulse Rate 71 05/26/25 07:53 Respiratory Rate 16 05/26/25 07:53 Blood Pressure 117/71 05/26/25 07:53 Pulse Oximetry 98 05/26/25 07:53 Oxygen Delivery Room Air 05/26/25 07:53 Temperature 97.6 F 05/26/25 07:53 Pulse Rate 67 05/26/25 10:04 Respiratory Rate 16 05/26/25 10:04 Blood Pressure 133/85 05/26/25 10:04 Pulse Oximetry 97 05/26/25 10:04 Oxygen Delivery Room Air 05/26/25 07:53 MDM - Extremity Injury (Upper) MDM Narrative Medical decision making narrative: Plan: Imaging, pain control, reassess Differential Diagnosis Differential diagnosis: Likely dislocation of shoulder, fracture of humerus and other (Strain of shoulder, shoulder separation, other) Discharge Plan Discharge Clinical Impression: Left shoulder strain, Acute pain of left shoulder Patient Disposition: Home Condition: Stable Instructions: Antibiotic Form, Rotator Cuff Injury (ED), Rotator Cuff Injury Exercises (DC) Additional Instructions: You were seen in the emergency department. X-ray of the shoulder were not concerning for fracture or dislocation. There appears to be swelling in the shoulder with degenerative changes, that I suspect is the cause of your pain. I recommend Tylenol, naproxen, muscle relaxers, lidocaine patches, stretching exercises and follow-up with a primary care doctor.. If you develop fevers with severe joint pain and swelling, the finger/hand appears blue/cold, or if you have other emergent concerns for life, limb, or eyesight, return to the emergency department. Patient Language: Emirati Prescriptions: New cyclobenzaprine 10 mg tablet 10 mg PO TID PRN (Reason: muscle spasm) Qty: 15 0RF lidocaine 5 % adhesive patch,medicated 1 patch topical DAILY Qty: 30 0RF Rx Instructions: leave on most painful area for up to 12 hrs No Action albuterol sulfate 90 mcg/actuation aerosol powdr breath activated 1 inh inhalation Q4-6H PRN (Reason: shortness of breath or wheezing) Qty: 1 1RF multivitamin [Multiple Vitamins] Tablet 1 tablet PO DAILY cinnamon bark 500 mg capsule 500 mg PO DAILY mecobalamin (vitamin B12) 1,000 mcg tablet,chewable 1,000 mcg PO DAILY PRN (Reason: other) fluticasone propionate [Flonase Allergy Relief] 50 mcg/actuation spray,suspension 2 spray intranasal DAILY PRN (Reason: Allergy Symptoms) Rx Instructions: administer into each nostril Black Cohosh Menopause Complex 20-250-50(d)/20 -200-100 mg (n) Tablets, Sequential 1 ea PO DAILY cyclobenzaprine 10 mg tablet 10 mg PO HS PRN (Reason: muscle spasm) Qty: 14 0RF ketorolac 10 mg tablet 10 mg PO Q6H 5 Days Qty: 20 0RF paroxetine HCl [Paxil] 10 mg tablet 10 mg PO DAILY Qty: 90 3RF zolpidem 10 mg tablet 10 mg PO QHS PRN (Reason: insomnia) Qty: 30 0RF pantoprazole 40 mg tablet,delayed release (DR/EC) See Rx Instructions .ROUTE .COMPLEX Qty: 90 1RF Dose Instruction: TAKE 1 TABLET BY MOUTH EVERY MORNING Rx Instructions: TAKE 1 TABLET BY MOUTH EVERY MORNING pregabalin [Lyrica] 300 mg capsule 300 mg PO BID Qty: 60 0RF Rx Instructions: LAST FILL UNTIL SEEN celecoxib [Celebrex] 200 mg capsule 200 mg PO DAILY Qty: 30 0RF Rx Instructions: LAST REFILL UNTIL SEEN Follow-up/Referrals: Ze Evans DO [Primary Care Provider, Internal Medicine] - 2 Weeks Stand Alone Forms: Work/School Release IP Time of Disposition: 10:16
== END 2025-05-26 10:32 | disposition home or self-care (01) ==
PROVIDERS: Emergency Provider Preventive Medicine Aerospace Medicine; PCP Internal Medicine
DX: S46.912A Strain of unspecified muscle, fascia and tendon at shoulder and upper arm level, left arm, initial encounter (principal); E78.5 Hyperlipidemia, unspecified; M19.90 Unspecified osteoarthritis, unspecified site; F41.8 Other specified anxiety disorders; F17.290 Nicotine dependence, other tobacco product, uncomplicated; Z79.899 Other long term (current) drug therapy; X50.0XXA Overexertion from strenuous movement or load, initial encounter; X50.3XXA Overexertion from repetitive movements, initial encounter
CPT/HCPCS: 73030; 96372; 99283; A9270; J1885

== ENCOUNTER 2025-06-22 10:58 | Outpatient (CLI) | payer OTHER, SELFPAY ==
--- NOTE | ~2025-06-22 | MR_ITS ---
EXAM/PROCEDURE: MR shoulder LT wo con HISTORY: M25.512 - Pain in left shoulder COMPARISON: Plain films from May 26, 2025 TECHNIQUE: Standard technique for noncontrast enhanced multiplanar left shoulder MRI performed. FINDINGS: Moderate to severe osteoarthritic changes in the glenohumeral joint with diffuse chondral erosive thinning, joint effusion and spur formation. Subchondral cystic changes developing in the glenoid labrum. There is also a large protuberant spur along the inferomedial margin of the humeral head measuring 2.6 x 1.3 x 1.0 cm. A small joint effusion is present. No fracture or dislocation; the humeral head is displaced slightly posteriorly and inferiorly. Small minimally or non retracted tear along the posterior margin of the supraspinatus tendon noted with partial-thickness tearing as well including longitudinal split tear in the infraspinatus tendon as seen on image 14 series 4. Subscapularis and teres minor appear intact. Trace amount of fluid in the subacromial bursa. Small amount of fluid is also present in the long head tendon sheath. The superior labral attachment of the tendon appears intact. Probable degenerative posterior labral tear seen on images 14 through 17 of series 8. Spinoglenoid recess and suprascapular notch regions appear normal. IMPRESSION: 1. Advanced degenerative changes with bulky protuberant spur along the inferomedial humeral head and slight degenerative appearing glenohumeral subluxation with small to moderate joint effusion. 2. Probable posterior labral degenerative tear. 3. Tiny full-thickness tear in the supraspinatus tendon with prominent partial- thickness and longitudinal split tears involving both the supraspinatus and infraspinatus tendons. Reviewed, dictated and finalized at location A. MA HAT SMEARER IMPRESSION: 1. Advanced degenerative changes with bulky protuberant spur along the inferome dial humeral head and slight degenerative appearing glenohumeral subluxation wi th small to moderate joint effusion. 2. Probable posterior labral degenerative tear. 3. Tiny full-thickness tear in the supraspinatus tendon with prominent partial- thickness and longitudinal split tears involving both the supraspinatus and inf raspinatus tendons.
== END 2025-06-22 10:59 | disposition home or self-care (01) ==
LOC: MICIMG 10:59
PROVIDERS: PCP Nurse Practitioner
DX: M19.012 Primary osteoarthritis, left shoulder (principal); M25.712 Osteophyte, left shoulder; M25.412 Effusion, left shoulder; M75.122 Complete rotator cuff tear or rupture of left shoulder, not specified as traumatic
CPT/HCPCS: 73221

== ENCOUNTER 2025-06-22 12:11 | Outpatient (CLI) | payer OTHER, SELFPAY ==
--- NOTE | ~2025-06-22 | XR_ITS ---
[id number] Indication: Anesthesia of skin, numbness and tingling in arms x 1 month Comparison: None Findings: Grade 1 retrolisthesis of C5 on C6, grade 1 anterolisthesis C3 on C4, no fracture is identified. Severe loss of disc height at C5-6. Soft tissues unremarkable Impression: No acute abnormality. Reviewed, dictated and finalized at location P. HARGING MACHINE OPERATOR Impression: No acute abnormality.
== END 2025-06-22 12:12 | disposition home or self-care (01) ==
DX: R20.0 Anesthesia of skin (principal); R20.2 Paresthesia of skin
CPT/HCPCS: 72040